=== PATIENT | female | born 1970 | race Caucasian/White ===

== ENCOUNTER → 2016-08-08 | Outpatient (CLI) | payer OTHER ==
--- NOTE | 2016-08-11 09:11 | MM ---
Reason for exam: screening (asymptomatic). Last mammogram was performed 1 year and 2 months ago. History: Family history of breast cancer in maternal grandmother. Took hormonal contraceptives for 15 years beginning at age 25. Physical Findings: A clinical breast exam by your physician is recommended on an annual basis and results should be correlated with mammographic findings. MG Screening Mammo w CAD Bilateral CC and MLO view(s) were taken. Prior study comparison: June 11, 2015, bilateral MG screening mammo w CAD. May 11, 2014, bilateral foundation screening mammo. The breast tissue is extremely dense which could obscure a lesion on mammography. Finding: There are typically benign calcifications. There is a chronic nodularity bilaterally. There is no dominant lesion. ASSESSMENT: Benign, BI-RAD 2 RECOMMENDATION: Routine screening mammogram of both breasts in 1 year.
== END | disposition home or self-care (01) ==
LOC: RADMAMWWP 13:07
PROVIDERS: ATTEND Family Medicine
DX: Z12.31 Encounter for screening mammogram for malignant neoplasm of breast (principal)

== ENCOUNTER → 2017-03-02 | Outpatient (CLI) | payer OTHER ==
--- NOTE | 2017-03-02 17:04 | XR ---
EXAMINATION TYPE: XR lumbosacral spine min 4V DATE OF EXAM: 03/02/2017 COMPARISON: NONE HISTORY: Chronic low back pain. TECHNIQUE: 4 views of the lumbar spine were obtained. FINDINGS: There is normal alignment of the lumbar vertebral bodies. There is no evidence of pars inte rarticularis defect. There is mild intervertebral disc space narrowing at L5-S1. There is no evidence of fracture or dislocation. There is a mild dextroscoliotic curvature of the thoracolumbar junction, which may be partially positional in nature. IMPRESSION: 1. No evidence of fracture or dislocation. 2. Mild degenerative disc disease at L5-S1. 3. Dextroscoliosis of the thoracolumbar junction, which may be partially positional in nature.
== END | disposition home or self-care (01) ==
LOC: RADXRYALE 16:03
PROVIDERS: ATTEND Physician Assistant Medical
DX: M51.37 Other intervertebral disc degeneration, lumbosacral region (principal); M41.85 Other forms of scoliosis, thoracolumbar region
CPT/HCPCS: 72110

== ENCOUNTER → 2018-08-12 | Outpatient (CLI) | payer OTHER ==
--- NOTE | 2018-08-15 13:15 | MM ---
Reason for exam: screening (asymptomatic). Last mammogram was performed 2 years ago. History: Family history of breast cancer in maternal grandmother. Took hormonal contraceptives for 15 years beginning at age 25. MG Screening Mammo w CAD Bilateral CC and MLO view(s) were taken. Prior study comparison: August 08, 2016, bilateral MG screening mammo w CAD. June 11, 2015, bilateral MG screening mammo w CAD. The breast tissue is extremely dense which could obscure a lesion on mammography. No suspicious abnormality. No significant changes when compared with prior studies. ASSESSMENT: Benign, BI-RAD 2 RECOMMENDATION: Routine screening mammogram of both breasts in 1 year.
== END | disposition home or self-care (01) ==
LOC: RADMAMWWP 11:42
PROVIDERS: ATTEND Family Medicine
DX: Z12.31 Encounter for screening mammogram for malignant neoplasm of breast (principal)
CPT/HCPCS: 77067

== ENCOUNTER → 2018-11-17 | Outpatient (CLI) | payer OTHER ==
[2018-11-12 14:23] VITALS: BMI 23.6
[2018-11-17 12:48] VITALS: BP 149/92; PULSE 86; RESP 16
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
== END ==
LOC: PNWHC3 12:26
PROVIDERS: ATTEND Hospitalist
DX: M47.816 Spondylosis without myelopathy or radiculopathy, lumbar region (principal); M41.86 Other forms of scoliosis, lumbar region; M46.1 Sacroiliitis, not elsewhere classified; Z87.891 Personal history of nicotine dependence; Z79.899 Other long term (current) drug therapy; Z79.1 Long term (current) use of non-steroidal anti-inflammatories (NSAID)
CPT/HCPCS: 99211

== ENCOUNTER → 2018-11-29 | Day surgery (SDC) | payer OTHER ==
[~2018-11-29] MED LIST: IV FLUID CONTINUATION 1,000 ML IV ONE; LACTATED RINGERS 1,000 ML IV ONE; LIDOCAINE 1% 20 ML VIAL (10MG/ML) FOR IV START INTRADERMA ONE
[2018-11-29 10:03] VITALS: RESP 16; TEMP 97.7
--- NOTE | 2018-11-29 10:44 | P.PCN ---
Date of Procedure: 11/29/18 Surgeon: Cammy James Pathology: none sent Condition: stable Disposition: PACU Description of Procedure: Preoperative diagnoses= sacroiliac joint dysfunction and sacroiliitis on the R ight side Postoperative diagnoses= same as preoperative diagnosis. Procedure= sacroiliac joint steroid injection under fluoroscopic guidance. Anesthesia= local anesthesia with lidocaine 1% and IV moderate conscious sedation with fentanyl and Versed Estimated blood loss=minimal. Procedure indication= the patient had a history of severe chronic low back pain, diagnosed with sacroiliitis and lumbar sacral facet arthropathy unresponsive to conservative treatment. Procedure description= the patient was seen and identified in the preoperative holding area, risks and benefits and alternative of the procedure and possible complications discussed with the patient, patient signed the consent. an IV was started, and vital signs were monitored and were stable throughout the pr ocedure, patient was placed in the prone position or table and the lumbosacral area was prepped and draped with a sterile fashion, vital signs were closely monitored during the procedure.The sacroiliac joint was identified on the AP view of fluoroscopy then the C-arm was tilted to the left oblique position to superimpose the anterior and posterior joint lines on each other and to have a unified joint line with the target point at the inferior one third of this line. I used 22-gauge 3-1/2 inch Quincke spinal needle for this procedure and after getting into the sacroiliac joint I injected 40 mg of Kenalog +2 MLS of Ropivacaine 0.5%. Patient tolerated the procedure well without any complication, The patient returned to supine position after the back was cleaned and a Band- Aid applied, the patient transported to recovery room in stable condition and he was monitored for 30 minutes before he was discharged home and then patient was reexamined before going home and patient was discharged in stable condition and patient will follow up with the pain clinic in a few weeks
[2018-11-29 11:10] VITALS: BP 122/75; PULSE 61
--- NOTE | 2018-11-29 12:11 | FL ---
EXAMINATION TYPE: FL guided pain mgmt statistic DATE OF EXAM: 11/29/2018 HISTORY: Flouroscopy time 11 seconds of fluoroscopy provided. IMPRESSION: 1. Fluoroscopy time.
== END ==
LOC: ORPAIN 09:46
PROVIDERS: ATTEND Anesthesiology
DX: M53.3 Sacrococcygeal disorders, not elsewhere classified (principal); M46.1 Sacroiliitis, not elsewhere classified; G89.29 Other chronic pain; M25.579 Pain in unspecified ankle and joints of unspecified foot; M19.90 Unspecified osteoarthritis, unspecified site; M41.9 Scoliosis, unspecified; M47.816 Spondylosis without myelopathy or radiculopathy, lumbar region; Z87.891 Personal history of nicotine dependence; Z79.899 Other long term (current) drug therapy
CPT/HCPCS: 81025; J2250; J3301; J3010; G0260; 27096

== ENCOUNTER 2018-12-13 09:46 | Day surgery (SDC) | payer OTHER ==
[2018-12-10 08:55] VITALS: BMI 24.0
[~2018-12-13 09:46] MED LIST changes: -IV FLUID CONTINUATION 1,000 ML IV ONE; -LACTATED RINGERS 1,000 ML IV ONE; +LACTATED RINGERS 1,000 ML IV SCH; -LIDOCAINE 1% 20 ML VIAL (10MG/ML) FOR IV START INTRADERMA ONE
[2018-12-13 10:16] VITALS: RESP 16; TEMP 98.3
[2018-12-13] MEDS ORDERED: LIDOCAINE 1% 20 ML VIAL (10MG/ML) FOR IV START INTRADERMA ONE (10:24)
--- NOTE | 2018-12-13 10:58 | P.PCN ---
Date of Procedure: 12/13/18 Description of Procedure: Date of Procedure: 12/13/2018 Surgeon: Fito Gordillo MD Condition: stable Disposition: PACU Description of Procedure: Preoperative diagnoses: Lumbosacral spondylosis Postoperative diagnoses= same as preoperative diagnosis. Procedure= sacroiliac joint steroid injection under fluoroscopic guidance. Anesthesia= local anesthesia with lidocaine 1% and IV moderate conscious sedation with fentanyl and Versed Estimated blood loss=minimal. Procedure indication= the patient had a history of severe chronic low back pain, diagnosed with sacroiliitis and lumbar sacral facet arthropathy unresponsive to conservative treatment. Procedure description: the patient was seen and identified in the preoperative holding area, risks and benefits and alternative of the procedure and possible complications discussed with the patient, patient signed the consent. an IV was started, and vital signs were monitored and were stable throughout the procedure, patient was placed in the prone position or table and the lumbosacral area was prepped and draped with a sterile fashion, vital signs were closely monitored during the procedure.The sacroiliac joint was identified on the AP view of fluoroscopy then the C-arm was tilted to the left oblique position to superimpose the anterior and posterior joint lines on each other and to have a unified joint line with the target point at the inferior one third of this line. I used 22-gauge 3-1/2 inch Quincke spinal needle for this procedure and after getting into the sacroiliac joint I injected 40 mg of Kenalog +2 MLS of Ropivacaine 0.5%. Patient tolerated the procedure well without any complication, The patient returned to supine position after the back was cleaned and a Band- Aid applied, the patient transported to recovery room in stable condition and he was monitored for 30 minutes before he was discharged home and then patient was reexamined before going home and patient was discharged in stable condition and patient will follow up with the pain clinic in a few weeks
--- NOTE | 2018-12-13 11:36 | FL ---
EXAMINATION TYPE: FL guided pain mgmt statistic DATE OF EXAM: 12/13/2018 HISTORY: Flouroscopy time 11 seconds of fluoroscopy provided. IMPRESSION: 1. Fluoroscopy time.
[2018-12-13 11:38] VITALS: BP 110/78; PULSE 68
[2018-12-13] MEDS ORDERED: IV FLUID CONTINUATION 1,000 ML IV ONE (11:41)
== END 2018-12-13 12:11 | disposition home or self-care (01) ==
LOC: ORPAIN 09:46
PROVIDERS: ATTEND Anesthesiology
DX: M47.817 Spondylosis without myelopathy or radiculopathy, lumbosacral region (principal); M46.1 Sacroiliitis, not elsewhere classified; G89.29 Other chronic pain
CPT/HCPCS: 81025; J3301; J3010; Q9966; G0260; 27096

== ENCOUNTER → 2019-01-10 | Outpatient (CLI) | payer OTHER ==
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
[2019-01-10 14:37] VITALS: BP 133/77; PULSE 94; RESP 16
== END | disposition home or self-care (01) ==
LOC: PNWHC3 13:59
PROVIDERS: ATTEND Anesthesiology
DX: M54.5 Low back pain (principal); Z98.890 Other specified postprocedural states; Z87.828 Personal history of other (healed) physical injury and trauma
CPT/HCPCS: 99211

== ENCOUNTER → 2019-01-20 | Outpatient (CLI) | payer OTHER ==
--- NOTE | 2019-01-21 11:04 | CT ---
EXAMINATION TYPE: CT lower extremity RT wo con DATE OF EXAM: 01/20/2019 COMPARISON: None HISTORY: Primary osteoarthritis. Right ankle. Prophecy protocol. CT DLP: 612 mGycm Automated exposure control for dose reduction was used. TECHNIQUE: Axial, coronal, sagittal and 3-D reconstruction images of the knee and ankle submitted. FINDINGS: There is a 5 mm intracortical lesion of the distal diaphysis of the femur posteriorly. There is surro unding sclerosis involving the distal diaphysis of the femur. Arthropathy of the knee joint and patellofemoral joint seen. Diffuse osteopenia but no evidence of er osive change. No acute fracture. Assessment of the ankle demonstrates narrowing of the ankle mortise. Hypertrophic changes are seen an d there is diffuse osteopenia. Chronic appearing deformity of the distal margin lateral malleolus not ed. Cystic change involving the dome of the talus. IMPRESSION: 1. Arthropathy of the ankle joint and knee joints. There is a cystic change and sclerosis involving t he talar domes occasionally be seen with osteochondritis. Correlate with MRI as clinically warranted. 2. There is an intraosseous lesion of the posterior cortex distal diaphysis of the femur measuring ap proximately 5 mm. Osteoid osteoma, intracortical fibrous dysplasia, infection, nonossifying fibroma o r bone cyst in the differential diagnosis.
== END | disposition home or self-care (01) ==
LOC: RADCTMAIN 15:24
PROVIDERS: ATTEND Orthopaedic Surgery
DX: D16.21 Benign neoplasm of long bones of right lower limb (principal); M19.071 Primary osteoarthritis, right ankle and foot; M25.861 Other specified joint disorders, right knee; M85.061 Fibrous dysplasia (monostotic), right lower leg

== ENCOUNTER → 2019-06-07 | Outpatient (CLI) | payer OTHER ==
[2019-06-07 13:09] VITALS: BP 136/77; PULSE 80; RESP 18
--- NOTE | 2019-06-07 13:25 | P.PAINPG ---
Subjective Progress Note Date: 06/07/19 This is a follow-up visit for this 48 years old female, with a chronic history of severe low back pain patient diagnosed with right sacroiliitis, lumbar spondylosis with lumbar facet arthropathy, November and December 2018 and we have done right side sacroiliac joint steroid injections 2, patient gets excellent pain relief after each injection, the pain was 8/10 dropped to 0-1/10 after the injection, recently she started having similar pain like before, and the pain mostly in the low back area with radiation to the right buttock, she denies any motor or sensory deficit she denies any fever or night sweats under is no change in the bowel movement or urination Objective - Vital Signs Vital signs: Vital Signs Temp Pulse 80 06/07/19 13:05 Resp 18 06/07/19 13:05 BP 136/77 06/07/19 13:05 Pulse Ox 100 06/07/19 13:05 - Exam Physical Examinations : -Constitutiona : Cooperative , not in acute distress . -HEENT : nech : supple , no Lymphadenopathy , normal thyroid size . : eyes : no ptosis , no icterus, no photophobia . - neurologic : Cranial nerve II to XII intact , no focal neurological deffecit . -psychatric : alert , oriented X 3 , appropriate affect , intact judgment and insight . -Lymphatic : no Lymphadenopathy . - musculoskeltal : Lumber spine moter stegnth lower extremities ,thigh and legs 5/5 Right side , 5/5 Left side deep tendon reflexes : normal Knee Jerk , normal ankle Jerk lumber facet Loading Test =positive Right , negative Left Range of motion of the lumbar spine Flexion 30 degrees, extension 10 degrees strait leg raising test = negative bilaterally Fabere test= negative bilaterally Sever tenderness over the Sacroiliac joint on the Right side only. Gaenslen test= positive right ,and negative left . Seated flexion test= positive right ,and negative Left . Assessment and Plan Plan: Assessment and plan= right sacroiliitis, lumbar spondylosis with lumbar facet arthropathy. Patient had excellent pain relief after right sacroiliac joint steroid injections 2 She will be good candidate for RFA of the right sacroiliac joint (RFA L5-S1 dorsal ramus, RFA lateral branchesS1, S2 ,S3 ) Procedure risk and benefits and alternatives discussed with the patient she agreed with the preceding Time with Patient: Less than 30 PQRS Measure Charge Sheet Measure #130: Documentation of Current Meds in Medical Chart: Patient's medications documented in chart Measure #226: Tobacco Use: Screen & Cessation Intervention: Pt not a tobacco user Measure #111: Pneumonia Vaccination: Pneumococcal vaccine NOT administered or previously given Measure #47: Advance Care Plan: Advance care planning discussed & documented, pt chose/unable to give Measure #412: Opioid Treatment Agreement: No documentation of signed opioid treatment agreement Measure #408: Opioid Therapy Follow-up Evaluation: Patient had NO f/u eval minimum every 3 months during opioid therapy Measure #317: Preventitive Care & Scrn High Bld Press & F/U: Normal blood pressure, f/u not required Measure #128: Body Mass Index (BMI) Screening & Follow-up: BMI documented within normal parameters Measure #131: Pain Assessment & Follow-up: Pain positive & plan documented, Follow-up scheduled Measure #431: Unhealthy Alcohol Use Preventative Care & Scrn: Patient not identified as an unhealthy alcohol user PQRS Narrative: Smoking Status Former smoker Blood Pressure 136/77 Pain Intensity [Lower Back] 5 Scale Used Numeric (1 - 10) Hx Alcohol Use (MH) Yes: social Home Medications: Ambulatory Orders Celecoxib [CeleBREX] 200 mg PO DAILY 01/10/19 Pregabalin [Lyrica] 75 mg PO BID 01/10/19 Controlled Substance Measures - Controlled Substance Measures Is patient prescribed a controlled substance at discharge?: No
== END | disposition home or self-care (01) ==
LOC: PNWHC3 12:57
PROVIDERS: ATTEND Specialist
DX: G89.29 Other chronic pain (principal); M46.1 Sacroiliitis, not elsewhere classified; M47.816 Spondylosis without myelopathy or radiculopathy, lumbar region; M46.96 Unspecified inflammatory spondylopathy, lumbar region; Z87.891 Personal history of nicotine dependence; Z79.1 Long term (current) use of non-steroidal anti-inflammatories (NSAID); Z79.899 Other long term (current) drug therapy
CPT/HCPCS: 99211

== ENCOUNTER 2019-06-20 09:27 | Day surgery (SDC) | payer OTHER ==
[2019-06-17 12:29] VITALS: BMI 24.0
[2019-06-20] MEDS ORDERED: LIDOCAINE 1% 20 ML VIAL (10MG/ML) FOR IV START INTRADERMA ONE (10:15)
[2019-06-20 10:33] VITALS: RESP 18; TEMP 98
[2019-06-20 10:40] LABS: Glucose,Whole Blood 82 mg/dL (75-99)
--- NOTE | 2019-06-20 11:03 | P.PCN ---
Date of Procedure: 06/20/19 Procedure(s) Performed: RF of the Lateral Branch of S1, S2, and S3, and RFA of L5 dorsal rami Date of the procedure: 06/20/19 PREOPERATIVE DIAGNOSIS: 1. Lumbosacral Spondylosis. 2. Bilateral sacroiliitis. POSTOPERATIVE DIAGNOSIS: 1-Lumbosacral arthropathy. 2-right sacroiliitis. PROCEDURES: 1. Right multi-site radiofrequency thermocoagulation/ablation of the S1, S2, and S3 lateral branches, and L5 dorsal rami. The procedure was performed using fluoroscopic guidance during needle placement to assure proper position and maximize safety. Images were saved to radiology PROVIDER: Sendy Barth M.D. ANESTHESIA: Local Anesthesia, moderate sedation with versed and fentanyl EBL: Minimal INDICATION/MEDICAL NECESSITY: History of low back unresponsive to more conservative treatments. The patient reported more than 50% relief of pain symptoms following 2 previous diagnostic blocks. PROCEDURE DESCRIPTION: The patient was seen and identified in the preoperative area. Risks, benefits, complications, and alternatives were discussed with the patient. The patient agreed to proceed with the procedure and signed the consent. Vital signs were checked before and after the procedure and they remained stable. Patient was brought to the procedure room and time out was completed. The patient was placed in the prone position on the procedure table and a pillow was placed under the abdomen to reduce lumbar lordosis. The lumbosacral area was prepped and draped in the usual sterile fashion. Critical pause was taken. The lateral margins of the right S1, S2, and S3 foramina were identified using AP fluoroscopy. Under fluoroscopic guidance, millimeter 18-gauge needles were places lateral to the S1, S2, and S3 sacral foramen with 1 cm apart.. Motor stimulation was done at 2 Hz. No radicular symptoms or paresthesias were produced during the testing. Then multiple bipolar lesions were performed at 150 seconds at 80 degrees. The needles were leapfrogged to continue the strip lesion. Next attention was given to the right L5 dorsal rami, after verifying correct positioning this to his lesion. The needle were subsequently withdrawn. COMPLICATIONS: The patient tolerated the procedure well without any acute complications. DISPOSTION/PLAN: The patient was returned to the recovery area after the procedure in a stable condition for observation. Patient was reexamined prior to discharge. Patient was then discharged home, accompanied by an adult, after meeting discharged criteria. Discharge instructions were give to the patient by the staff. Patient was specifically instructed not to drive today and to rest for the rest of the day. The patient will schedule a follow up visit in the clinic within the next four weeks.
[2019-06-20] MEDS ORDERED: IV FLUID CONTINUATION 1,000 ML IV ONE (11:05)
[2019-06-20 11:26] VITALS: BP 122/64; PULSE 83
--- NOTE | 2019-06-20 12:16 | FL ---
Fluoroscopy HISTORY: Pain 24 seconds fluoroscopy time supplied to the referring clinician. 7 intraoperative C-arm images docum ent the procedure. See dictated report from anesthesia.
== END 2019-06-20 11:37 | disposition home or self-care (01) ==
LOC: ORPAIN 09:27
PROVIDERS: ATTEND Student in an Organized Health Care Education/Training Program
DX: G89.29 Other chronic pain (principal); M47.26 Other spondylosis with radiculopathy, lumbar region; M46.1 Sacroiliitis, not elsewhere classified; E11.9 Type 2 diabetes mellitus without complications; Z87.891 Personal history of nicotine dependence; Z79.899 Other long term (current) drug therapy
CPT/HCPCS: 81025; 64640 ×3; 64635; J2250; J3010; 99152; 99153

== ENCOUNTER → 2019-07-19 | Outpatient (CLI) | payer OTHER ==
[2019-07-19 14:55] VITALS: BP 152/92; PULSE 68; RESP 16
--- NOTE | 2019-07-20 08:38 | P.PAINPG ---
Subjective Progress Note Date: 07/19/19 this is a follow-up visit for this 48 years old female with a chronic history of severe low back pain, he is diagnosed with sacroiliitis, and lumbar spondylosis with lumbar facet arthropathy, status post RFA of the right sacroiliac joint, patient currently complaining of severe localized pain in the right side low back area, and also in the right side sacral and buttock area, she denies any motor or sensory deficit she denies any fever or night sweats and there is no change in the bowel movement or urination, continue to use Lyrica 75 mg 2 times a day and Celebrex 200 mg daily Objective - Vital Signs Vital signs: Vital Signs Temp Pulse 68 07/19/19 14:21 Resp 16 07/19/19 14:21 BP 152/92 07/19/19 14:21 Pulse Ox 99 07/19/19 14:21 - Exam Physical Examinations : -Constitutiona : Cooperative , not in acute distress . -HEENT : nech : supple , no Lymphadenopathy , normal thyroid size . : eyes : no ptosis , no icterus, no photophobia . - neurologic : Cranial nerve II to XII intact , no focal neurological deffecit . -psychatric : alert , oriented X 3 , appropriate affect , intact judgment and insight . -Lymphatic : no Lymphadenopathy . - musculoskeltal : Lumber spine moter stegnth lower extremities ,thigh and legs 5/5 Right side , 5/5 Left side deep tendon reflexes : normal Knee Jerk , normal ankle Jerk lumber facet Loading Test =positive Right , positive Left Range of motion of the lumbar spine Flexion 60 degrees, extension 30 degrees strait leg raising test = negative bilaterally Fabere test= negative bilaterally tenderness over the Sacroiliac joint on the Right side total trigger point identified in the right side lumbar paravertebral muscles right sacral and right buttock area . Assessment and Plan Plan: assessment and plan=1- lumbar spondylosis with lumbar facet arthropathy. 2- sacroiliitis. 3-myofascial pain syndrome right-sided lumbar paravertebral on the right side lumbar sacral area, right buttock area. patient will be good candidate to have trigger point injections in the right side lumbar paravertebral muscles of the right side sacral area. Time with Patient: Less than 30 PQRS Measure Charge Sheet Measure #130: Documentation of Current Meds in Medical Chart: Patient's medications documented in chart Measure #226: Tobacco Use: Screen & Cessation Intervention: Pt not a tobacco user Measure #111: Pneumonia Vaccination: Pneumococcal vaccine NOT administered or previously given Measure #47: Advance Care Plan: Advance care planning discussed & documented, pt chose/unable to give Measure #412: Opioid Treatment Agreement: No documentation of signed opioid treatment agreement Measure #408: Opioid Therapy Follow-up Evaluation: Patient had NO f/u eval minimum every 3 months during opioid therapy Measure #317: Preventitive Care & Scrn High Bld Press & F/U: Pre-hypertensive or hypertensive BP documented, pt will f/u with PCP Measure #128: Body Mass Index (BMI) Screening & Follow-up: BMI documented within normal parameters Measure #131: Pain Assessment & Follow-up: Pain positive & plan documented, Follow-up scheduled Measure #431: Unhealthy Alcohol Use Preventative Care & Scrn: Patient not identified as an unhealthy alcohol user PQRS Narrative: Smoking Status Former smoker Blood Pressure 152/92 Pain Intensity [Right Lower 9 Back] Scale Used Numeric (1 - 10) Hx Alcohol Use (MH) Yes: Social Home Medications: Ambulatory Orders Celecoxib [CeleBREX] 200 mg PO DAILY 01/10/19 Pregabalin [Lyrica] 75 mg PO BID 01/10/19 Controlled Substance Measures - Controlled Substance Measures Is patient prescribed a controlled substance at discharge?: No
== END | disposition home or self-care (01) ==
LOC: PNWHC3 13:07
PROVIDERS: ATTEND Specialist
DX: M47.816 Spondylosis without myelopathy or radiculopathy, lumbar region (principal); M46.96 Unspecified inflammatory spondylopathy, lumbar region; M46.1 Sacroiliitis, not elsewhere classified; M79.18 Myalgia, other site; Z87.891 Personal history of nicotine dependence; Z79.899 Other long term (current) drug therapy
CPT/HCPCS: 99211

== ENCOUNTER 2019-08-17 08:48 | Day surgery (SDC) | payer OTHER ==
[2019-08-16 11:10] VITALS: BMI 24.3
[~2019-08-17 08:48] MED LIST changes: +BUPIVACAINE (PF) 0.5% 30 ML VIAL ONE; +LIDOCAINE 1% INJ 10MG/ML (20 ML MDV) ONE; +TRIAMCINOLONE ACETONIDE 40 MG/ML 1 ML VIAL ONE
[2019-08-17 09:27] VITALS: TEMP 97.5
[2019-08-17 10:59] VITALS: RESP 16
[2019-08-17 11:18] VITALS: BP 150/68; PULSE 82
--- NOTE | 2019-09-01 06:44 | P.PCN ---
Date of Procedure: 08/17/19 Description of Procedure: Date of Procedure: 12/13/2018 Surgeon: Fito Gordillo MD Condition: stable Disposition: PACU Description of Procedure: Preoperative diagnoses: Lumbosacral spondylosis, myofascial pain, myalgia Postoperative diagnoses= same as preoperative diagnosis. Procedure= Trigger Point Injections of right lumbar paraspinal muscles, right gluteus muscle with ultrasound guidance Anesthesia= local anesthesia Estimated blood loss=minimal. Procedure indication= the patient had a history of severe chronic low back pain, diagnosed with sacroiliitis and lumbar sacral facet arthropathy unresponsive to conservative treatment. Unresponsive to conservative therapy for myofascial/myalgia pain Procedure description: the patient was seen and identified in the preoperative holding area, risks and benefits and alternative of the procedure and possible complications discussed with the patient, patient signed the consent. an IV was started, and vital signs were monitored and were stable throughout the procedure, patient was placed in the sitting position lumbosacral area was prepped and draped with a sterile fashion, vital signs were closely monitored during the procedure.The Trigger points were identified with palpation. Ultrasound guidance was used to identify muscle, visualize needle, and visualize medication spread. I used 25-gauge 1- 1/2 inch spinal needle for this procedure. A solution of 6ml 0.5% ropivacaine and 40mg kenalog 1ml was used. 1-2 ml injected into each trigger point. A total of 4 injections into 3 muscles occured. Patient tolerated the procedure well without any complication, The patient returned to supine position after the back was cleaned and a Band- Aid applied, the patient transported to recovery room in stable condition and he was monitored for 30 minutes before he was discharged home and then patient was reexamined before going home and patient was discharged in stable condition and patient will follow up with the pain clinic in a few weeks`
== END 2019-08-17 11:08 | disposition home or self-care (01) ==
LOC: ORPAIN 08:48
PROVIDERS: ATTEND Anesthesiology
DX: G89.29 Other chronic pain (principal); M47.817 Spondylosis without myelopathy or radiculopathy, lumbosacral region; M79.18 Myalgia, other site; M46.1 Sacroiliitis, not elsewhere classified; M47.816 Spondylosis without myelopathy or radiculopathy, lumbar region; Z87.891 Personal history of nicotine dependence; Z79.899 Other long term (current) drug therapy; Z79.1 Long term (current) use of non-steroidal anti-inflammatories (NSAID)
CPT/HCPCS: 81025; 20553; 76942; J3301; J2001

== ENCOUNTER 2019-09-22 09:08 | Day surgery (SDC) | payer OTHER ==
[2019-09-20 10:18] VITALS: BMI 24.3
[~2019-09-22 09:08] MED LIST changes: -BUPIVACAINE (PF) 0.5% 30 ML VIAL ONE; -LIDOCAINE 1% INJ 10MG/ML (20 ML MDV) ONE; -TRIAMCINOLONE ACETONIDE 40 MG/ML 1 ML VIAL ONE
[2019-09-22 09:28] VITALS: TEMP 97.6
[2019-09-22] MEDS ORDERED: LIDOCAINE 1% 20 ML VIAL (10MG/ML) FOR IV START INTRADERMA ONE (09:40)
[2019-09-22 09:47] LABS: Glucose,Whole Blood 80 mg/dL (75-99)
[2019-09-22] MEDS ORDERED: LIDOCAINE 4% (PF) 5 ML AMP ONE (10:27)
[2019-09-22] MEDS ORDERED: IOPAMIDOL M200 10 ML VIAL ONE (10:27)
[2019-09-22] MEDS ORDERED: MIDAZOLAM 2 MG/2 ML VIAL ONE (10:27)
[2019-09-22] MEDS ORDERED: IV FLUID CONTINUATION 1,000 ML IV ONE (10:47)
[2019-09-22 11:20] VITALS: BP 128/56; PULSE 67; RESP 18
--- NOTE | 2019-09-22 12:37 | P.PCN ---
Date of Procedure: 09/22/19 Procedure(s) Performed: PREOPERATIVE DIAGNOSIS : Lumbar spondylosis with Facet Arthropathy without myelopathy POSTOPERATIVE DIAGNOSIS: same PROCEDURE: First Diagnostic lumbar medial branch block with fluoroscopy at L3, L4, L5 right side which covers facets L4-5 and L5-S1 ANESTHESIA: Local anesthetic; moderate IV sedation with Versed 1 mg, sedation time 10 minutes Fluoroscopy was used for the procedure and images were saved in the radiology portion of the chart. Surgeon: Katherine Pereira MD PROCEDURE INDICATION: Lumbar back pain without radiculopathy, not responsive to conservative management. PROCEDURE DESCRIPTION: the patient was seen and identified in the preop holding area , risks and benefits and possible complications of the procedure and alternatives were discussed with the patient, and the patient agreed to proceed with the procedure and signed the consent . IV was started , vital signs were monitored during the procedure and fluoroscopy was used to maximize the benefit and accuracy of the needle placement, and sedation was given to decrease patient anxiety. Patient was taken to the procedure room and placed in prone position. The lumbar region was prepped using chlorhexidineX-2. Under strict sterile technique using AP fluoroscopy the right sacral ala was identified and using ipsilateral oblique fluoroscopy ,the junction of the transverse process and the superior articulating process of the L4, L5 vertebra which corresponds to the fluoroscopy image of the eye of the Edwin dog for the medial branches were identified. Subsequently, after local infiltration of skin with lidocaine 1% 0.2 mL at each level , a 25-gauge 3.5" Quincke-type needle was placed at the junction of the base of the transverse process and the superior articular process at the appropriate level as well as the sacral ala, and the needle was advanced until the periosteum contacted, needle placement confirmed with AP and oblique fluoroscopy, 0.2 mL of Isovue 200 per level was injected which revealed no vascular uptake and after negative aspiration, 0.5 mL of [lidocaine 4%] was i njected at each level and the needle subsequently removed . At the end of the procedure and the needles were removed and a bandage applied after the skin was cleaned. The patient was taken to recovery room in stable condition and monitors in the recovery room for 20-30 minutes and discharged home in stable condition after discharge criteria met and patient will follow up in clinic in 2 weeks EBL: Minimal COMPLICATION: None.
--- NOTE | 2019-09-22 12:55 | FL ---
Fluoroscopy HISTORY: Pain 3 seconds fluoroscopy time supplied to the referring clinician. 2 intraoperative C-arm images docume nt the procedure. See dictated report from anesthesia.
== END 2019-09-22 11:20 | disposition home or self-care (01) ==
LOC: ORPAIN 09:08
PROVIDERS: ATTEND Anesthesiology
DX: M47.816 Spondylosis without myelopathy or radiculopathy, lumbar region (principal)
CPT/HCPCS: 81025; 64493; 64494; J2001; J2250; Q9966; 99152

== ENCOUNTER 2019-10-06 09:45 | Day surgery (SDC) | payer OTHER ==
[2019-10-05 08:47] VITALS: BMI 24.3
[2019-10-06 10:16] LABS: Glucose,Whole Blood 78 mg/dL (75-99)
[2019-10-06] MEDS ORDERED: LIDOCAINE 1% (10MG/ML) FOR IV START INTRADERMA ONE (10:20)
[2019-10-06 10:22] VITALS: TEMP 98.9
[2019-10-06] MEDS ORDERED: ROPIVACAINE 5MG/ML 20ML VIAL ONE (10:31)
[2019-10-06] MEDS ORDERED: methylPREDNISolone ACETATE 40 MG/ML 1 ML VIAL ONE (10:31)
[2019-10-06] MEDS ORDERED: fentaNYL (PF) 50 MCG/ML 2 ML AMP ONE (10:31)
[2019-10-06] MEDS ORDERED: MIDAZOLAM 2 MG/2 ML VIAL ONE (10:31)
--- NOTE | 2019-10-06 10:46 | P.PCN ---
Date of Procedure: 10/06/19 Procedure(s) Performed: PREOPERATIVE DIAGNOSIS : 1- Lumbar spondylosis with Facet Arthropathy without myelopathy . POSTOPERATIVE DIAGNOSIS: 1- Lumbar spondylosis with Facet Arthropathy without myelopathy . PROCEDURE: Second Diagnostic Right L3 , L4 , and L5 medial branch block under fluoroscopy guidance(fluoroscopy images available in the radiology Department ) ( To target the facet joint between Right L4-5 , and L5-S1 ) ANESTHESIA:, moderate sedation with intravenous Versed 2 mg and Fentanyl 50 mcg. EBL: Minimal COMPLICATION: None. IV FLUIDS: 100 mL of normal saline. PROCEDURE INDICATION: Chronic low back pain secondary to Facet arthropathy unresponsive to conservative treatment. PROCEDURE DESCRIPTION: the patient was seen and identified in the preop holding area , risks and benefits and possible complications of the procedure and alternative were discussed with the patient, and the patient agreed to proceed with the procedure and signed the consent IV was started and vital signs monitored during the procedure and fluoroscopy was used to maximize the benefit and accuracy of the needle placement, and sedation was given to decrease patient anxiety, patient was taken to the procedure room and placed in prone position vital signs monitored in the back prepped with chlorhexidine X3 then under strict sterile technique using a right oblique fluoroscopy ,the junction of the transverse process and the superior articulating process of the right L3 , L4 , and L5 vertebra which corresponding to the fluoroscopy image of the eye of the Edwin dog on the block side for the medial branches and subsequently , after local infiltration of skin and subcu tissuies with Ropivacaine 0.5 % , one mL at each level ,then 22-gauge Quincke-type needles , 3 needle was used , each one of them placed at the junction of the base of the transverse process and the superior articular process at the appropriate level, and the needle was advanced until the periosteum contacted, needle placement confirmed with AP oblique and lateral view and after appropriate needle placement confirmed, and after negative aspiration for heme and CSF and there was no paresthesia 1-1/2 mL of Ropivacaine 0.5% mixed with 40 mg Depo-Medrol , then half mL injected at each level after negative aspiration the needle subsequently removed intact . At the end of the procedure and the needles removed and a bandage applied after the skin was cleaned the cleaning solution patient taken to recovery room in stable condition and monitors in the recovery room for 20-30 minutes and discharged home in stable condition after discharge criteria met and patient will follow up with the pain clinic in 2-4 weeks
[2019-10-06] MEDS ORDERED: IV FLUID CONTINUATION 1,000 ML IV ONE (10:51)
--- NOTE | 2019-10-06 10:58 | FL ---
EXAMINATION TYPE: FL guided pain mgmt statistic DATE OF EXAM: 10/06/2019 HISTORY: Fluoroscopy time 4 seconds of fluoroscopy provided. IMPRESSION: 1. Fluoroscopy time.
[2019-10-06 11:00] VITALS: RESP 16
[2019-10-06 11:07] VITALS: BP 122/82; PULSE 73
== END 2019-10-06 11:23 | disposition home or self-care (01) ==
LOC: ORPAIN 09:45
PROVIDERS: ATTEND Specialist
DX: G89.29 Other chronic pain (principal); M47.816 Spondylosis without myelopathy or radiculopathy, lumbar region; M46.1 Sacroiliitis, not elsewhere classified
CPT/HCPCS: 81025; 64493; 64494; J2250; J1030; J3010; J2795

== ENCOUNTER → 2020-04-03 | Outpatient (CLI) | payer OTHER ==
--- NOTE | 2020-04-03 17:07 | XR ---
EXAMINATION TYPE: XR thoracic spine complete DATE OF EXAM: 04/03/2020 CLINICAL HISTORY: Thoracic pain, scoliosis TECHNIQUE: Frontal, lateral, and swimmer's view of thoracic spine are obtained. COMPARISON: None. FINDINGS: The thoracic spine shows levoscoliosis of the thoracic spine of 25 degrees, and incompletel y visualized lumbar dextroscoliosis. No evidence of acute fracture or dislocation. There is an increa sed thoracic kyphosis. Vertebral body height are within normal limits. Multilevel degenerative endpla te spurring. Visualized ribs are missing no evidence of displaced fracture. IMPRESSION: 1. Thoracic spine levoscoliosis of 25 degrees. 2. Degenerative spurring of the thoracic spine. 3. Incompletely visualized dextroscoliosis of the lumbar spine.
== END | disposition home or self-care (01) ==
LOC: RADXRYALE 14:40
PROVIDERS: ATTEND Physician Assistant Medical
DX: M41.84 Other forms of scoliosis, thoracic region (principal)
CPT/HCPCS: 72072

== ENCOUNTER → 2020-04-25 | Outpatient (CLI) | payer OTHER ==
[2020-04-25 12:36] VITALS: RESP 18
[2020-04-25 12:42] VITALS: BP 111/78; PULSE 77; TEMP 98.4
--- NOTE | 2020-04-25 12:57 | P.PAINPG ---
Subjective Progress Note Date: 04/25/20 this is a follow-up visit for this 48 years old female with a chronic history of severe low back pain, he is diagnosed with sacroiliitis, and lumbar spondylosis with lumbar facet arthropathy, previously we have done the RFA of the right sacroiliac joint,in our last visit patient's pain was more low back, now s/p bilateral LMBB of L3-L5. Here for follow up today. She had medial branch blocks in September and October of this year, was scheduled to have RFA but the virus. She is now back. Her pain she says is worse than it was before located in the right low back with radiation to the lower thoracic area as well as right buttock. She has had ablation of the SI joint on the right side in the past which she said worked very well. Medial branch blocks that she had earlier this year also worked very well, giving her several hours of relief newly 100%. She is receiving [place] 5 mg when necessary from her PCP due to recent back strain as well as Celebrex 200 twice a day for ankle pain. she denies any motor or sensory deficit she denies any fever or night sweats and there is no change in the bowel movement or urination, Objective - Exam -Constitutiona : Cooperative , not in acute distress . -HEENT : nech : supple , no Lymphadenopathy , normal thyroid size . : eyes : no ptosis , no icterus, no photophobia . - neurologic : Cranial nerve II to XII intact , no focal neurological deffecit . -psychatric : alert , oriented X 3 , appropriate affect , intact judgment and insight . -Lymphatic : no Lymphadenopathy . - musculoskeltal : Lumber spine moter stegnth lower extremities ,thigh and legs 5/5 Right side , 5/5 Left side deep tendon reflexes : normal Knee Jerk , normal ankle Jerk lumber facet Loading Test =positive Right , positive Left Range of motion of the lumbar spine Flexion 60 degrees, extension 30 degrees strait leg raising test = negative bilaterally Fabere test= negative bilaterally tenderness over the Sacroiliac joint on the Right side Assessment and Plan Plan: assessment and plan=1- lumbar spondylosis with lumbar facet arthropathy. 2- sacroiliitis. Schedule her for right L4-L5 and L5-S1 RFA. Time with Patient: Less than 30 PQRS Measure Charge Sheet Measure #130: Documentation of Current Meds in Medical Chart: Patient's medications documented in chart Measure #226: Tobacco Use: Screen & Cessation Intervention: Pt not a tobacco user Measure #111: Pneumonia Vaccination: Pneumococcal vaccine NOT administered or previously given Measure #47: Advance Care Plan: Advance care planning discussed & documented, pt chose/unable to give Measure #412: Opioid Treatment Agreement: No documentation of signed opioid treatment agreement Measure #408: Opioid Therapy Follow-up Evaluation: Patient had NO f/u eval minimum every 3 months during opioid therapy Measure #317: Preventitive Care & Scrn High Bld Press & F/U: Pre-hypertensive or hypertensive BP documented, pt will f/u with PCP Measure #128: Body Mass Index (BMI) Screening & Follow-up: BMI documented within normal parameters Measure #131: Pain Assessment & Follow-up: Pain positive & plan documented, Follow-up scheduled Measure #431: Unhealthy Alcohol Use Preventative Care & Scrn: Patient not identified as an unhealthy alcohol user PQRS Narrative: Smoking Status Former smoker Blood Pressure 144/84 Pain Intensity [Right Lower 4 Back] Scale Used Numeric (1 - 10) Hx Alcohol Use (MH) Yes: Social PQRS Measure Charge Sheet PQRS Narrative: Smoking Status Former smoker Pain Intensity [Lower Back] 9 Scale Used Numeric (1 - 10) Hx Alcohol Use (MH) Yes: Social Home Medications: Ambulatory Orders Celecoxib [CeleBREX] 200 mg PO BID 01/10/19 HYDROcodone/APAP 5-325MG [[place] 5-325] 1 tab PO Q6HR PRN 04/25/20 Controlled Substance Measures - Controlled Substance Measures Is patient prescribed a controlled substance at discharge?: No
== END | disposition home or self-care (01) ==
LOC: PNWHC3 12:20
PROVIDERS: ATTEND Anesthesiology
DX: M47.816 Spondylosis without myelopathy or radiculopathy, lumbar region (principal); M46.96 Unspecified inflammatory spondylopathy, lumbar region; M46.1 Sacroiliitis, not elsewhere classified; Z87.891 Personal history of nicotine dependence; Z79.891 Long term (current) use of opiate analgesic; Z79.899 Other long term (current) drug therapy
CPT/HCPCS: 99211

== ENCOUNTER 2020-05-17 10:34 | Day surgery (SDC) | payer OTHER ==
[2020-05-15 13:06] VITALS: BMI 25.1
[2020-05-17 10:51] VITALS: TEMP 98.5
[2020-05-17] MEDS ORDERED: ROPIVACAINE 5MG/ML 20ML VIAL ONE (11:04)
[2020-05-17] MEDS ORDERED: TRIAMCINOLONE ACETONIDE 40 MG/ML 1 ML VIAL ONE (11:04)
[2020-05-17] MEDS ORDERED: MIDAZOLAM 2 MG/2 ML VIAL ONE (11:04)
[2020-05-17] MEDS ORDERED: fentaNYL (PF) 50 MCG/ML 2 ML AMP ONE (11:04)
--- NOTE | 2020-05-17 11:31 | P.PCN ---
Date of Procedure: 05/17/20 Surgeon: Cammy James Pathology: none sent Condition: stable Disposition: PACU Description of Procedure: PREOPERATIVE DIAGNOSIS: Lumbar spondylosis without myelopathy POSTOPERATIVE DIAGNOSIS: Lumbar spondylosis without myelopathy PROCEDURES : Radiofrequency thermocoagulation L4-L5, and L5-S1 medial branch, with fluoroscopic guidance on the right side ANESTHESIA: IV moderate conscious sedation with versed and fentanyl and local infiltration with lidocaine 1% 5 ml Physician:Cammy James MD EBL: Minimal PROCEDURE INDICATION: The patient with low back pain secondary to lumbar facet arthropathy who had more than 50% relief of her pain with previous diagnostic lumbar medial branch block with bupivacaine. PROCEDURE DESCRIPTION / TECHNIQUE: The patient was seen and identified in the preoperative area. Risks, benefits, complications, including but not limited to risk of infection ,bleeding , allergic reactions to the medications and no complete pain relief , and alternatives were discussed with the patient, the patient agreed to proceed with the procedure and signed the consent. IV was started. Vital signs remained stable throughout the procedure. Patient was taken to the OR and time out was completed. The patient was placed in the prone position on the procedure table. The lumber area was prepped and draped in the usual sterile fashion. . Vital signs were closely monitored during the procedure .IV sedation was used during the procedure to decrease patients anxiety. The target points were identified as follows: For the L5-S1 level which corresponds to the dorsal ramus of L5 the target point was at the superior medial aspect of the sacral ala on the Rt side of the spine on the AP view of fluoroscopy and for the L3, and L4 medial branches the target points were at the connection between the transverse process and the superior articular process of L4, and L5 vertebra respectively on the Rt oblique view of fluoroscopy. skin was marked, and localized with 1% lidocaineat these points. Subsequently, an 18 [id number] radiofrequency needles with a 10-mm curved active tips were advanced guided by fluoroscopy to each of the target points mentioned above in a superior medial direction to get the active tips as parallel as possible to the medial branches tracks. AP, oblique, and lateral views of fluoroscopy were used to verify needle tips position. Each level then underwent motor testing at 2.5 Hz and 0 to 3 volt with local stimulation, but no radicular symptoms down the legs. Thereafter radiofrequency thermocoagulation at 80 degrees celsius for 90 seconds after injecting 1 ml of PF Marcaine 0.5%(3 mls) with 40 mg of Kenalog. At the end of the procedure, the skin was cleansed and bandages were applied. A copy of needle placement fluoroscopy was saved on the C-arm machine. COMPLICATIONS: No acute complications. DISPOSITION / PLANS: The patient was placed in a supine position and transferred to the recovery area in a stable condition for observation and was discharged from the recovery room after meeting discharge criteria. Home discharge instructions given to the patient by the staff. The patient was reexamined prior to discharge. The patient will schedule a follow up in the [facility] in 2-4 weeks.
[2020-05-17] MEDS ORDERED: IV FLUID CONTINUATION 1,000 ML IV ONE (11:36)
[2020-05-17 11:51] VITALS: BP 130/85; PULSE 71; RESP 16
--- NOTE | 2020-05-17 16:30 | FL ---
EXAMINATION TYPE: FL guided pain mgmt statistic DATE OF EXAM: 05/17/2020 COMPARISON: None HISTORY: Right lumbar radiofrequency TECHNIQUE: Fluoroscopy. FINDINGS: Fluoroscopic guidance was provided during procedure performed by Dr. James. A total of 17 seconds of fluoroscopic time was utilized during the procedure and 2 spot images was acquired. IMPRESSION: As Above.
== END 2020-05-17 12:12 | disposition home or self-care (01) ==
LOC: ORPAIN 10:34
PROVIDERS: ATTEND Anesthesiology
DX: M47.816 Spondylosis without myelopathy or radiculopathy, lumbar region (principal)
CPT/HCPCS: 81025; 64635; 64636; J2250; J3301; J3010; J2795; 99152

== ENCOUNTER → 2020-06-11 | Outpatient (CLI) | payer OTHER ==
[2020-06-11 12:35] VITALS: BP 142/82; PULSE 71; RESP 16; TEMP 98.1
--- NOTE | 2020-06-12 11:33 | P.PN ---
Subjective Progress Note Date: 06/11/20 this is a follow-up visit for this 49 years old female with a chronic history of severe low back pain, she is diagnosed with sacroiliitis, and lumbar spondylosis with lumbar facet arthropathy, recently we did RFA of the right-sided medial branch lumbar area , last year we have done the RFA of the right sacroiliac joint, patient currently complaining of severe localized pain in the right side buttock, and also in the right side sacral and buttock area, she denies any motor or sensory deficit she denies any fever or night sweats and there is no change in the bowel movement or urination, continue to use Lyrica 75 mg 2 times a day and Celebrex 200 mg daily Objective - Vital Signs Vital signs: Vital Signs Temp 98.1 F 06/11/20 12:31 Pulse 71 06/11/20 12:31 Resp 16 06/11/20 12:31 BP 142/82 06/11/20 12:31 Pulse Ox 98 06/11/20 12:31 - Exam -Constitutiona : Cooperative , not in acute distress . -HEENT : nech : supple , no Lymphadenopathy , normal thyroid size . : eyes : no ptosis , no icterus, no photophobia . - neurologic : Cranial nerve II to XII intact , no focal neurological deffecit . -psychatric : alert , oriented X 3 , appropriate affect , intact judgment and insight . -Lymphatic : no Lymphadenopathy . - musculoskeltal : Lumber spine moter stegnth lower extremities ,thigh and legs 5/5 Right side , 5/5 Left side deep tendon reflexes : normal Knee Jerk , normal ankle Jerk lumber facet Loading Test =positive Right , negative Left Range of motion of the lumbar spine Flexion 60 degrees, extension 30 degrees strait leg raising test = negative bilaterally Fabere test= negative bilaterally tenderness over the Sacroiliac joint on the Right side Assessment and Plan Plan: assessment and plan=1- lumbar spondylosis with lumbar facet arthropathy. 2- sacroiliitis. She continue to have severe low back pain after RFA of the right medial branch lumbar area SHE will be good candidate to have a repeat RFA of the right sacroiliac joint (RFA Right L5-S1 dorsal ramus ,RFA right lateral branches S1 ,S2 ,S3 ) Time with Patient: Less than 30 PQRS Measure Charge Sheet Measure #130: Documentation of Current Meds in Medical Chart: Patient's medications documented in chart Measure #226: Tobacco Use: Screen & Cessation Intervention: Pt not a tobacco user Measure #111: Pneumonia Vaccination: Pneumococcal vaccine NOT administered or previously given Measure #47: Advance Care Plan: Advance care planning discussed & documented, pt chose/unable to give Measure #412: Opioid Treatment Agreement: No documentation of signed opioid treatment agreement Measure #408: Opioid Therapy Follow-up Evaluation: Patient had NO f/u eval minimum every 3 months during opioid therapy Measure #317: Preventitive Care & Scrn High Bld Press & F/U: Pre-hypertensive or hypertensive BP documented, pt will f/u with PCP Measure #128: Body Mass Index (BMI) Screening & Follow-up: BMI documented within normal parameters Measure #131: Pain Assessment & Follow-up: Pain positive & plan documented, Follow-up scheduled Measure #431: Unhealthy Alcohol Use Preventative Care & Scrn: Patient not identified as an unhealthy alcohol user PQRS Narrative: Time with Patient: Less than 30
== END | disposition home or self-care (01) ==
LOC: PNWHC3 12:09
PROVIDERS: ATTEND Specialist
DX: M47.816 Spondylosis without myelopathy or radiculopathy, lumbar region (principal); M46.1 Sacroiliitis, not elsewhere classified
CPT/HCPCS: 99211

== ENCOUNTER 2020-07-05 09:52 | Day surgery (SDC) | payer OTHER ==
[2020-07-03 12:20] VITALS: BMI 24.3
[2020-07-05 10:23] VITALS: TEMP 98.5
[2020-07-05] MEDS ORDERED: TRIAMCINOLONE ACETONIDE 40 MG/ML 1 ML VIAL ONE (10:49)
[2020-07-05] MEDS ORDERED: IOPAMIDOL M200 10 ML VIAL ONE (10:49)
[2020-07-05] MEDS ORDERED: ROPIVACAINE 5MG/ML 20ML VIAL ONE (10:49)
--- NOTE | 2020-07-05 10:58 | P.PCN ---
Date of Procedure: 07/05/20 Description of Procedure: Preoperative diagnoses: right sacroilitis Postoperative diagnoses: right sacroilitis. Procedure: right sacroiliac joint steroid injection under fluoroscopic guidance. Surgeon: Noel Garcia MD Anesthesia: [2 mL of 1% lidocaine and moderate sedation per hospital guidelines] Fluoroscopy was used for the procedure and fluoroscopic images were saved to the radiology portion of the patient's chart. EBL: None Procedure indication: The patient had a history of severe chronic low back pain, diagnosed with sacroiliitis unresponsive to conservative treatment. Procedure description: The patient was seen and identified in the preoperative holding area, risks and benefits and alternative of the procedure and possible complications discussed with the patient, and patient agreed with the preceding, patient signed the consent, an IV was started, and vital signs were monitored and were stable throughout the procedure, patient was placed in the prone position on table and the lumbosacral area was prepped and draped with a sterile fashion, vital signs were closely monitored during the procedure, the fluoroscopy camera was placed in the contralateral oblique view on the right sacroiliac joint and the lower part of the joint was identified . Then the skin and subcutaneous tissue was anesthetized using 2 mL of 1% lidocaine then a 22- gauge Quincke-type spinal needle advanced slowly under fluoroscopy and placed in the posterior and inferior border of the right sacroiliac joint, placement confirmed with AP and lateral view, and after appropriate needle placement confirmed and after negative aspiration for heme, 1 mL of Isovue 200 was injected revealing intra-articular spread. Then a solution consisting of 2 ml of ropivacaine 0.5% and 40 mg of Kenalog injected after negative aspiration, no paresthesia during the injection, no resistance to injection, and the needle was removed. Patient tolerated the procedure well without any complication. The patient was returned to supine position after the back was cleaned and a Band-Aid applied, the patient was transported to recovery room in stable condition and monitored for 30 minutes before being discharged home. The patient will follow up for repeat procedure in 2-4 weeks.
[2020-07-05 11:06] VITALS: RESP 16
[2020-07-05 11:30] VITALS: BP 137/79; PULSE 80
--- NOTE | 2020-07-05 12:23 | FL ---
Fluoroscopy HISTORY: Pain 8 seconds fluoroscopy time supplied to the referring clinician. 1 intraoperative C-arm images docume nt the procedure. See dictated report from anesthesia.
== END 2020-07-05 11:38 | disposition home or self-care (01) ==
LOC: ORPAIN 09:52
PROVIDERS: ATTEND Anesthesiology
DX: M46.1 Sacroiliitis, not elsewhere classified (principal); Z78.0 Asymptomatic menopausal state
CPT/HCPCS: J3301; Q9966; J2795; G0260; 27096

== ENCOUNTER → 2020-08-17 | Outpatient (CLI) | payer OTHER ==
--- NOTE | 2020-08-17 15:24 | MR ---
EXAMINATION TYPE: MR lumbar spine wo con DATE OF EXAM: 08/17/2020 COMPARISON: NONE HISTORY: Scoliosis, intervertebral disc degeneration, right-sided sciatica, weakness all per order. S evere chronic back pain since 2017 into right lower extremity per patient. TECHNIQUE: Multiplanar, multisequence imaging of the lumbar spine is performed without IV contrast. FINDINGS: Localizer images show dextroconvex scoliosis centered near thoracolumbar junction. Sagittal images of the lumbar spine show vertebral body heights and alignment to appear satisfactory. Multile marco antonio disc desiccation. Moderate disc space narrowing L5-S1 level with vacuum disc phenomenon. The con us medullaris is normal in position and signal ending mid L1 level. The bone marrow signal intensity is within normal limits. Axial images show T12-L1, L1-L2, L2-L3, and L3-L4 levels all to appear within normal limits. Axial images at L4-L5 levels with tiny central disc protrusion minimally effacing the anterior thecal sac. Axial images at L5-S1 level show mild/moderate right greater than left facet arthropathy and ligament um flavum hypertrophy. There is mild broad disc bulge with right foraminal disc protrusion component causing [id number] right-sided neural foraminal narrowing encroaching on the right L5 nerve i n the sagittal image 13. The left-sided neural foramen is patent. Paraspinal muscle bulk is preserved. IMPRESSION: Scoliosis and multilevel degenerative changes as detailed above. Attention to L5-S1 level where right foraminal disc protrusion causes severe right-sided neural foraminal narrowing and encro achment on the exiting right L5 nerve likely accounting for patient's radiculopathy type symptoms.
== END | disposition home or self-care (01) ==
LOC: RADMRIMAIN 13:40
PROVIDERS: ATTEND Physician Assistant Medical
DX: M48.061 Spinal stenosis, lumbar region without neurogenic claudication (principal); M51.27 Other intervertebral disc displacement, lumbosacral region; M47.816 Spondylosis without myelopathy or radiculopathy, lumbar region; M41.85 Other forms of scoliosis, thoracolumbar region
CPT/HCPCS: 72148

== ENCOUNTER → 2020-09-03 | Outpatient (CLI) | payer OTHER ==
--- NOTE | 2020-09-04 13:44 | MM ---
Reason for exam: screening (asymptomatic). Last mammogram was performed 2 years and 1 month ago. History: Patient is postmenopausal. Family history of breast cancer in maternal grandmother. Took hormonal contraceptives for 15 years beginning at age 25. Physical Findings: A clinical breast exam by your physician is recommended on an annual basis and results should be correlated with mammographic findings. MG Screening Mammo w CAD Bilateral CC and MLO view(s) were taken. Prior study comparison: August 12, 2018, bilateral MG screening mammo w CAD. August 08, 2016, bilateral MG screening mammo w CAD. The breast tissue is extremely dense which could obscure a lesion on mammography. Focal asymmetry on right CC and MLO, may be two separate focal asymmetries. This finding is changed when compared with previous exams. ASSESSMENT: Incomplete: need additional imaging evaluation, BI-RAD 0 RECOMMENDATION: Special view mammogram of the right breast. If lesion persists on supplemental views, image directed ultrasound is recommended. [facility] will attempt to contact patient to return for supplemental views and ultrasound if indicated.
== END | disposition home or self-care (01) ==
LOC: RADMAMWWP 12:53
PROVIDERS: ATTEND Family Medicine
DX: Z12.31 Encounter for screening mammogram for malignant neoplasm of breast (principal)
CPT/HCPCS: 77067

== ENCOUNTER 2020-09-04 11:04 | Day surgery (SDC) | payer OTHER ==
[2020-08-31 14:49] VITALS: BMI 25.1
[2020-09-04 11:17] VITALS: RESP 16; TEMP 98.2
[2020-09-04] MEDS ORDERED: methylPREDNISolone ACETATE 40 MG/ML 1 ML VIAL ONE (11:47)
[2020-09-04] MEDS ORDERED: ROPIVACAINE 5MG/ML 20ML VIAL ONE (11:47)
[2020-09-04] MEDS ORDERED: IOPAMIDOL M200 10 ML VIAL ONE (11:47)
--- NOTE | 2020-09-04 11:56 | P.PCN ---
Date of Procedure: 09/04/20 Description of Procedure: Preoperative diagnoses: right sacroilitis Postoperative diagnoses: right sacroilitis. Procedure: right sacroiliac joint steroid injection under fluoroscopic guidance. Surgeon: Noel Garcia MD Anesthesia: [2 mL of 1% lidocaine and moderate sedation per hospital guidelines] Fluoroscopy was used for the procedure and fluoroscopic images were saved to the radiology portion of the patient's chart. EBL: None Procedure indication: The patient had a history of severe chronic low back pain, diagnosed with sacroiliitis unresponsive to conservative treatment. Procedure description: The patient was seen and identified in the preoperative holding area, risks and benefits and alternative of the procedure and possible complications discussed with the patient, and patient agreed with the preceding, patient signed the consent, an IV was started, and vital signs were monitored and were stable throughout the procedure, patient was placed in the prone position on table and the lumbosacral area was prepped and draped with a sterile fashion, vital signs were closely monitored during the procedure, the fluoroscopy camera was placed in the contralateral oblique view on the right sacroiliac joint and the lower part of the joint was identified . Then the skin and subcutaneous tissue was anesthetized using 2 mL of 1% lidocaine then a 22- gauge Quincke-type spinal needle advanced slowly under fluoroscopy and placed in the posterior and inferior border of the right sacroiliac joint, placement confirmed with AP and lateral view, and after appropriate needle placement confirmed and after negative aspiration for heme, 1 mL of Isovue 200 was injected revealing intra-articular spread. Then a solution consisting of 2 ml of ropivacaine 0.5% and 40 mg of Kenalog injected after negative aspiration, no paresthesia during the injection, no resistance to injection, and the needle was removed. Patient tolerated the procedure well without any complication. The patient was returned to supine position after the back was cleaned and a Band-Aid applied, the patient was transported to recovery room in stable condition and monitored for 30 minutes before being discharged home. The patient will follow up in clinic in 2-4 weeks.
[2020-09-04 12:01] VITALS: BP 125/88; PULSE 73
--- NOTE | 2020-09-04 14:21 | FL ---
Fluoroscopy HISTORY: Pain 3 seconds fluoroscopy time supplied to the referring clinician. 1 intraoperative C-arm images docume nt the procedure. See dictated report from anesthesia.
== END 2020-09-04 12:27 | disposition home or self-care (01) ==
LOC: ORPAIN 11:04
PROVIDERS: ATTEND Anesthesiology
DX: G89.29 Other chronic pain (principal); M46.1 Sacroiliitis, not elsewhere classified; Z78.0 Asymptomatic menopausal state
CPT/HCPCS: J1030; Q9966; J2795; G0260; 27096

== ENCOUNTER → 2020-09-06 | Outpatient (CLI) | payer OTHER ==
--- NOTE | 2020-09-07 10:35 | MM ---
Reason for exam: additional evaluation requested from abnormal screening. Last mammogram was performed less than 1 month ago. History: Patient is postmenopausal. Family history of breast cancer in maternal grandmother. Took hormonal contraceptives for 15 years beginning at age 25. Physical Findings: Nurse did not find any significant physical abnormalities on exam. MG Work Up Mamm w CAD RT Spot compression CC, spot compression MLO, and LM view(s) were taken of the right breast. Prior study comparison: September 03, 2020, bilateral MG screening mammo w CAD. August 12, 2018, bilateral MG screening mammo w CAD. The breast tissue is extremely dense which could obscure a lesion on mammography. There is no discrete abnormality including area of concern right upper outer quadrant. No significant new findings when compared with previous films. These results were verbally communicated with the patient and result sheet given to the patient on 09/06/20. ASSESSMENT: Probably benign, BI-RAD 3 RECOMMENDATION: Follow-up diagnostic mammogram of the right breast in 6 months.
== END | disposition home or self-care (01) ==
LOC: RADMAMWWP 09:43
PROVIDERS: ATTEND Family Medicine
DX: R92.8 Other abnormal and inconclusive findings on diagnostic imaging of breast (principal)
CPT/HCPCS: 77065

== ENCOUNTER → 2020-11-12 | Outpatient (CLI) | payer OTHER ==
[2020-11-12 13:22] VITALS: BP 134/74; PULSE 73; RESP 16; TEMP 97.9
--- NOTE | 2020-11-12 13:51 | P.PN ---
Subjective Progress Note Date: 11/12/20 This is a follow-up visit for this 49 years old female with a chronic history of severe low back pain ,she is diagnosed with right sacroiliitis, and lumbar spondylosis with lumbar facet arthropathy, previously we have done right-sided sacroiliac joint steroid injection ,and she gets excellent relief for short- term, currently, she is complaining of severe low back pain ,mainly on the right side with radiation to the right buttock the pain increases with any activity, interfere with the quality of life she denies any motor or sensory deficit ,she denies any fever ,or night sweats Objective - Vital Signs Vital signs: Vital Signs Temp 97.9 F 11/12/20 13:16 Pulse 73 11/12/20 13:16 Resp 16 11/12/20 13:16 BP 134/74 11/12/20 13:16 Pulse Ox 100 11/12/20 13:16 - Exam Physical Examinations : -Constitutiona : Cooperative , not in acute distress . -HEENT : nech : supple , no Lymphadenopathy , normal thyroid size . : eyes : no ptosis , no icterus, no photophobia . - neurologic : Cranial nerve II to XII intact , no focal neurological deffecit . -psychatric : alert , oriented X 3 , appropriate affect , intact judgment and insight . -Lymphatic : no Lymphadenopathy . - musculoskeltal : Lumber spine moter stegnth lower extremities ,thigh and legs 5/5 Right side , 5/5 Left side deep tendon reflexes : normal Knee Jerk , normal ankle Jerk lumber facet Loading Test =positive Right , negative left Range of motion of the lumbar spine Flexion 60 degrees, extension 30 degrees strait leg raising test = negative bilaterally Fabere test= negative bilaterally Sever tenderness over the Sacroiliac joint on the Right side only . Gaenslen test= positive right ,and negative left . Seated flexion test= positive right ,and negative Left . Distraction test= positive on the right side only Sacroiliac compression test= positive on the right side only Assessment and Plan Plan: Assessment and plan=1-right sacroiliitis. 2-right sacroiliac joint dysfunction. 3-lumbar spondylosis with lumbar facet arthropathy. Patient could benefit from repeat right-sided sacroiliac steroid injection under fluoroscopy guidance. - PQRS measures = - Patient's medications are documented in the chart. -Tobacco use is negative and counseling.Given. -Patient's has not received pneumococcal vaccine. -Advanced care planning discussed, patient not eligible. -Opiate contract not signed. -Pain positive and follow-up visit/procedure is scheduled. -Patient's blood pressure measured [ 134/74 ] , and documented in the record ,and patient will follow up with the primary care. -Patient's weight was measured and body mass index [ ] above the normal limits and counseling was done. and patient instructed to follow-up with the primary care physician. -Patient was not identified as an unhealthy alcohol user Time with Patient: Less than 30
== END ==
LOC: PNWHC3 12:48
PROVIDERS: ATTEND Specialist
DX: M46.1 Sacroiliitis, not elsewhere classified (principal); M53.3 Sacrococcygeal disorders, not elsewhere classified; M47.816 Spondylosis without myelopathy or radiculopathy, lumbar region
CPT/HCPCS: 99211

== ENCOUNTER 2020-12-11 11:06 | Day surgery (SDC) | payer OTHER ==
[2020-12-07 09:47] VITALS: BMI 24.7
[2020-12-11 11:27] VITALS: TEMP 97.7
[2020-12-11] MEDS ORDERED: IOPAMIDOL M200 10 ML VIAL ONE (12:00)
[2020-12-11] MEDS ORDERED: DEXAMETHASONE SOD PHOSPHATE 10 MG/ML 1 ML VIAL ONE (12:00)
--- NOTE | 2020-12-11 12:18 | P.PCN ---
Date of Procedure: 12/11/20 Preoperative Diagnosis: Lumbar disc herniation, and lumbar radiculopathy Postoperative Diagnosis: Lumbar disc herniation, lumbar radiculopathy Anesthesia: local Surgeon: Kenny Olivas Estimated Blood Loss (ml): 0 IV fluids (ml): 0 Urine output (ml): 0 Pathology: none sent Condition: stable Disposition: PACU Description of Procedure: PROCEDURE: 1) right sided L5-S1 Transforaminal epidural steroid injection under fluoroscopic guidance, 2) Epidurogram SURGEON: Kenny Olivas PELLET PRESS OPERATOR: None ANESTHESIA: Local , and IV sedation: None EBL: None. 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 Came here for repeat procedure. PROCEDURE DESCRIPTION: The patient was seen and identified in the preoperative area. Risks, benefits, complications, and alternatives were discussed with the patient. The patient agreed to proceed with the procedure and signed the consent. and vital signs were stable. Patient was taken to the OR and time out was completed. The patient was placed in the prone position on procedure table and a pillow was placed under the abdomen to reduce lumbar lordosis. The lumbosacral area was prepped with ChloraPrep 1 and draped in the usual sterile fashion. Critical pause was taken. Vital signs were closely monitored during the procedure. Using 20 degree ipsilateral oblique fluoroscopy, the chin of the Edwin dog of L5 was identified, and the skin and deeper tissues just below was localized with 1% lidocaine. 22-guage 5-inch spinal needles were used for the procedure. The needle was guided by fluoroscopy just underneath the chin of the Edwin dog of L5 . Under AP fluoroscopy, the needle was advanced to the 6 o'clock position of the L5 pedicle. After negative aspiration of CSF and blood and with no paresthesias, 1 mL of Isovue-200 contrast dye was injected with good anterior epidural spread and outlining of the L5 nerve root. After negative aspiration 3 mL of block solution injected . Block solution contained 10 mg of dexamethasone, 0.5 mL of 1% lidocaine preservative-free with 1.5 mL of normal saline preservative-free. Needle was removed intact, skin was cleansed, and bandage was applied. COMPLICATIONS: None. DISPOSITION : The patient was placed in a supine position and transferred to the recovery area in a stable condition for observation and was discharged from the recovery room after meeting discharge criteria. Home discharge instructions given to the patient by the staff. The patient was reexamined prior to discharge. The patient will schedule follow-up in the clinic in 4 weeks' duration
[2020-12-11] MEDS ORDERED: LACTATED RINGERS 1,000 ML IV SCH (12:30)
[2020-12-11 12:33] VITALS: BP 110/75; PULSE 76; RESP 18
--- NOTE | 2020-12-11 13:45 | FL ---
Fluoroscopy HISTORY: Pain 8 seconds fluoroscopy time supplied to the referring clinician. 3 intraoperative C-arm images docume nt the procedure. See dictated report from anesthesia.
== END 2020-12-11 12:39 | disposition home or self-care (01) ==
LOC: ORPAIN 11:06
DX: M51.16 Intervertebral disc disorders with radiculopathy, lumbar region (principal); Z79.1 Long term (current) use of non-steroidal anti-inflammatories (NSAID); Z98.890 Other specified postprocedural states; Z78.0 Asymptomatic menopausal state
CPT/HCPCS: 64483; J1100; Q9966

== ENCOUNTER 2021-01-03 12:17 | Day surgery (SDC) | payer OTHER ==
[2021-01-02 09:37] VITALS: BMI 24.7
[2021-01-03 12:33] VITALS: TEMP 98
[2021-01-03] MEDS ORDERED: ROPIVACAINE 5MG/ML 20ML VIAL ONE (13:04)
[2021-01-03] MEDS ORDERED: methylPREDNISolone ACETATE 40 MG/ML 1 ML VIAL ONE (13:04)
--- NOTE | 2021-01-03 13:15 | P.PCN ---
Date of Procedure: 01/03/21 Procedure(s) Performed: Procedure= Right sacroiliac joints steroid injection under fluoroscopy guidance (fluoroscopy image stored on file in the radiology Department ) Preoperative diagnosis= 1- Right sacroiliitis 2-lumbar radiculopathy 3-lumbar facet arthropathy Postoperative diagnosis=Same as preop Diagnosis . Complication = none Condition= stable Anesthesia= local anesthtics with Ropivacaine 0.5 % 3 ml . Indication for the procedure= patient complaining of low back pain , examination was positive for severe tenderness over the sacroiliac joints bilaterally and patient diagnosed with sacroiliitis, for this reason she was good candidate for sacroiliac joint steroid injection. Description of the procedure= procedure risk and benefits discussed with the patient, including but not limited, risk of infection and bleeding, and ALLERGIC reaction to the medication and not complete pain relief and patient agreed with the preceding patient taken to the operating room, placed in prone position or standard monitors applied to the patient then after induction of anesthesia back prepped with chlorhexidine 3 times , Then under strict sterile technique, first I did the right sacroiliac joint the which was identified under fluoroscopy guidance been local infiltration of the skin and subcu interstitial with lidocaine 1% then 22-gauge Quincke Needle advanced slowly under fluoroscopy and placed in the right sacroiliac joint needle placement confirmed with AP and oblique and lateral view and after appropriate needle placement confirmed and after negative aspiration, or heme , then Ropivacaine 0.5% 4 mL, and 40 mg of Depo-Medrol mixed together and injected in the right sacroiliac joint after negative aspiration patient tolerated the procedure well without any complication. s
[2021-01-03 13:28] VITALS: BP 138/89; PULSE 67; RESP 16
--- NOTE | 2021-01-03 13:47 | FL ---
EXAMINATION TYPE: FL guided pain mgmt statistic DATE OF EXAM: 01/03/2021 HISTORY: Fluoroscopy time 3 seconds of fluoroscopy provided. IMPRESSION: 1. Fluoroscopy time.
== END 2021-01-03 13:40 | disposition home or self-care (01) ==
LOC: ORPAIN 12:17
PROVIDERS: ATTEND Specialist
DX: M47.26 Other spondylosis with radiculopathy, lumbar region (principal); M46.1 Sacroiliitis, not elsewhere classified; N95.9 Unspecified menopausal and perimenopausal disorder
CPT/HCPCS: J1030; J2795; G0260; 27096

== ENCOUNTER → 2021-01-28 | Outpatient (CLI) | payer OTHER ==
[2021-01-28 12:57] VITALS: BP 120/76; PULSE 72; RESP 16; TEMP 98.3
--- NOTE | 2021-01-28 13:25 | P.PN ---
Subjective Progress Note Date: 01/28/21 This is a follow-up visit for this 50 years old female with a chronic history of severe low back pain ,she is diagnosed with right sacroiliitis, and lumbar spondylosis with lumbar facet arthropathy, previously we have done right-sided sacroiliac joint steroid injection ,and previously we have done also RFA of the right sacroiliac joint, and she get long-term benefit from it for more than a year, currently, she is complaining of severe low back pain ,mainly on the right side with radiation to the right buttock the pain increases with any activity, interfere with the quality of life she denies any motor or sensory deficit ,she denies any fever ,or night sweats Physical Examinations : -Constitutiona : Cooperative , not in acute distress . -HEENT : nech : supple , no Lymphadenopathy , normal thyroid size . : eyes : no ptosis , no icterus, no photophobia . - neurologic : Cranial nerve II to XII intact , no focal neurological deffecit . -psychatric : alert , oriented X 3 , appropriate affect , intact judgment and insight . -Lymphatic : no Lymphadenopathy . - musculoskeltal : Lumber spine moter stegnth lower extremities ,thigh and legs 5/5 Right side , 5/5 Left side deep tendon reflexes : normal Knee Jerk , normal ankle Jerk lumber facet Loading Test =positive Right , negative left Range of motion of the lumbar spine Flexion 60 degrees, extension 30 degrees strait leg raising test = negative bilaterally Fabere test= negative bilaterally Sever tenderness over the Sacroiliac joint on the Right side only . Gaenslen test= positive right ,and negative left . Seated flexion test= positive right ,and negative Left . Distraction test= positive on the right side only Sacroiliac compression test= positive on the right side only Assessment and Plan Plan: Assessment and plan=1-right sacroiliitis. 2-right sacroiliac joint dysfunction. 3-lumbar spondylosis with lumbar facet arthropathy. Patient could benefit from RFA of the right sacroiliac joint, this is not approved by insurance ,then we can repeat right- sided sacroiliac joint steroid injection, this with the patient the option of sending her for evaluation by spine surgeon, regarding fusion of the right sacroiliac joint, she is concerned about the surgery, and she doesn't want to have surgery and this point - PQRS measures = - Patient's medications are documented in the chart. -Tobacco use is negative and counseling.Given. -Patient's has not received pneumococcal vaccine. -Advanced care planning discussed, patient not eligible. -Opiate contract not signed. -Pain positive and follow-up visit/procedure is scheduled. -Patient's blood pressure measured [ 120/76] , and documented in the record ,and patient will follow up with the primary care. -Patient's weight was measured and body mass index 25.1[ ] above the normal limits and counseling was done. and patient instructed to follow-up with the primary care physician. -Patient was not identified as an unhealthy alcohol user Objective - Vital Signs Vital signs: Vital Signs Temp 98.3 F 01/28/21 12:54 Pulse 72 01/28/21 12:54 Resp 16 01/28/21 12:54 BP 120/76 01/28/21 12:54 Pulse Ox 100 01/28/21 12:54 Intake & Output 01/27/21 01/28/21 01/28/21 18:59 06:59 18:59 Weight 77.111 kg
== END ==
LOC: PNWHC3 12:38
PROVIDERS: ATTEND Specialist
DX: M46.1 Sacroiliitis, not elsewhere classified (principal); M47.816 Spondylosis without myelopathy or radiculopathy, lumbar region; M53.3 Sacrococcygeal disorders, not elsewhere classified
CPT/HCPCS: 99211

== ENCOUNTER 2021-02-19 10:47 | Day surgery (SDC) | payer OTHER ==
[2021-02-18 10:47] VITALS: BMI 24.3
[2021-02-19 11:20] VITALS: TEMP 96.9
--- NOTE | 2021-02-19 11:23 | P.PCN ---
Date of Procedure: 02/19/21 Description of Procedure: Preoperative diagnoses: right sacroilitis Postoperative diagnoses: right sacroilitis. Procedure: Right sacroiliac joint steroid injection under fluoroscopic guidance. Surgeon: Fito Gordillo MD Anesthesia: [2 mL of 1% lidocaine and moderate sedation per hospital guidelines] Fluoroscopy was used for the procedure and fluoroscopic images were saved to the radiology portion of the patient's chart. EBL: None Procedure indication: The patient had a history of severe chronic low back pain, diagnosed with sacroiliitis unresponsive to conservative treatment. Procedure description: The patient was seen and identified in the preoperative holding area, risks and benefits and alternative of the procedure and possible complications discussed with the patient, and patient agreed with the preceding, patient signed the consent, an IV was started, and vital signs were monitored and were stable throughout the procedure, patient was placed in the prone position on table and the lumbosacral area was prepped and draped with a sterile fashion, vital signs were closely monitored during the procedure, the fluoroscopy camera was placed in the contralateral oblique view on the right sacroiliac joint and the lower part of the joint was identified . Then the skin and subcutaneous tissue was anesthetized using 2 mL of 1% lidocaine then a 22- gauge Quincke-type spinal needle advanced slowly under fluoroscopy and placed in the posterior and inferior border of the right sacroiliac joint, placement confirmed with AP and lateral view, and after appropriate needle placement confirmed and after negative aspiration for heme, 1 mL of Isovue 200 was injected revealing intra-articular spread. Then a solution consisting of 2 ml of ropivacaine 0.5% and 40 mg of Kenalog injected after negative aspiration, no paresthesia during the injection, no resistance to injection, and the needle was removed. Patient tolerated the procedure well without any complication. The patient was returned to supine position after the back was cleaned and a Band-Aid applied, the patient was transported to recovery room in stable condition and monitored for 30 minutes before being discharged home. The patient will follow up in clinic in 2-4 weeks.
[2021-02-19] MEDS ORDERED: TRIAMCINOLONE ACETONIDE 40 MG/ML 1 ML VIAL ONE (12:03)
[2021-02-19] MEDS ORDERED: ROPIVACAINE 5MG/ML 20ML VIAL ONE (12:03)
[2021-02-19] MEDS ORDERED: IOPAMIDOL M200 10 ML VIAL ONE (12:03)
[2021-02-19 12:37] VITALS: BP 105/72; PULSE 72; RESP 18
--- NOTE | 2021-02-19 13:26 | FL ---
Fluoroscopy HISTORY: Pain 5 seconds fluoroscopy time supplied to the referring clinician. 1 intraoperative C-arm images docume nt the procedure. See dictated report from anesthesia.
== END 2021-02-19 12:38 | disposition home or self-care (01) ==
LOC: ORPAIN 10:47
PROVIDERS: ATTEND Anesthesiology
DX: G89.29 Other chronic pain (principal); M46.1 Sacroiliitis, not elsewhere classified; N95.9 Unspecified menopausal and perimenopausal disorder
CPT/HCPCS: J3301; Q9966; J2795; G0260; 27096

== ENCOUNTER → 2021-03-07 | Outpatient (CLI) | payer OTHER ==
--- NOTE | 2021-03-12 13:22 | MM ---
Reason for exam: follow-up at short interval from prior study. Last mammogram was performed 6 months ago. History: Patient is postmenopausal. Family history of breast cancer in maternal grandmother. Took hormonal contraceptives for 15 years beginning at age 25. Physical Findings: Nurse did not find any significant physical abnormalities on exam. MG Diagnostic Mammo RT w CAD CC, MLO, and XCCL view(s) were taken of the right breast. Prior study comparison: September 06, 2020, right breast MG work up mamm w CAD RT. September 03, 2020, bilateral MG screening mammo w CAD. The breast tissue is heterogeneously dense. This may lower the sensitivity of mammography. Finding: There are typically benign vascular, round calcifications in the right breast. There is no discrete abnormality on current study. These results were verbally communicated with the patient and result sheet given to the patient on 03/07/21. ASSESSMENT: Benign, BI-RAD 2 RECOMMENDATION: Follow-up diagnostic mammogram of both breasts in 6 months.
== END | disposition home or self-care (01) ==
LOC: RADMAMWWP 11:04
PROVIDERS: ATTEND Family Medicine
DX: R92.1 Mammographic calcification found on diagnostic imaging of breast (principal); Z78.0 Asymptomatic menopausal state; Z79.3 Long term (current) use of hormonal contraceptives; Z80.3 Family history of malignant neoplasm of breast
CPT/HCPCS: 77065

== ENCOUNTER → 2021-04-22 | Outpatient (CLI) | payer OTHER ==
[2021-04-22 12:28] VITALS: BP 120/73; PULSE 64; RESP 18
--- NOTE | 2021-04-22 12:39 | P.PN ---
Subjective Progress Note Date: 04/22/21 This is a 50-year-old lady with history of chronic lower back pain on the r ight side of her back with radiation to the upper buttock area. The patient responded very well to sacroiliac joint steroid injection on the right side however her insurance denied her and ablation. The patient is scheduled to have surgery on her right ankle in June of this year for joint replacement and she is going to have right sacroiliac joint fused in the future as she states. The patient would like to proceed with another sacroiliac joint steroid injection on the right side because her pain has been getting worse lately. Patient denies new-onset weakness, bowel/bladder incontinence, or any other signs or symptoms of cauda equina syndrome. There are no signs of acute intoxication, and no indications of medication diversion or overuse. In addition to above, 13-point review of systems is also negative for chest pain, shortness of breath, changes in vision, changes in hearing, new onset weakness, abdominal pain, diarrhea, extreme fatigue, malaise, fever, skin changes, homicidal or suicidal ideation, or bowel or bladder incontinence. Vital Signs: Reviewed in EMR Gen: AAOx3, NAD HEENT: PERRLA,hearing grossly normal Pulm: resp unlabored Neck: supple, trachea midline Neuro exam of the lower extremities: Normal muscle strength bilaterally and symmetrically over due to her right ankle pain and she was not able to dorsiflex her ankle on the right side Straight leg raising test: Hu's test: Positive on the right side Range of motion of the lumbar spine: Facet loading test: Tenderness in the paravertebral musculature: *Tenderness around the right sacroiliac joint Neuro: CN II-XII grossly intact, Imaging: Reviewed in EMR/chart Assessment: Right sacroiliitis and sacral joint dysfunction Lumbar spondylosis without myelopathy Osteoarthritis in the right ankle Plan: 1. Explanation: When patients on opioids, opioid and psychological risk scores were reviewed. Diagnoses, prognoses, and multiple treatment options including but not limited to physical therapy, interventional therapies, adjuvant medical therapies, narcotic medication therapies, and surgery were discussed with the patient and all questions were answered to the patient's satisfaction. 2. Opioid agreement:When patients are prescribed opoids through our clinic, opioid agreement is signed with the patient and the patient is warned not to use opioids while driving or before driving and not to combine opioids with benzodiazepines or alcohol. 3. Counseling: When patient is smoking or obese, the patient was counseled extensively on SMOKING CESSATION, BODY MASS INDEX, EXERCISE. Specifically, the patient was instructed regarding the importance of smoking cessation, obesity, and exercise in the context of both chronic pain and overall health. 4. Procedures: Schedule for right sacroiliac joint steroid injection under fluoroscopic guidance 5. Consultations: None 6. Investigations: None 7. Medications: none Prescribed 8. Disposition: Proceed with the above-mentioned procedure as soon as possible 9. Maps were reviewed and were appropriate. Objective - Vital Signs Vital signs: Vital Signs Temp Pulse 64 04/22/21 12:25 Resp 18 04/22/21 12:25 BP 120/73 04/22/21 12:25 Pulse Ox 100 04/22/21 12:25
== END ==
LOC: PNWHC3 12:16
PROVIDERS: ATTEND Anesthesiology
DX: M46.1 Sacroiliitis, not elsewhere classified (principal); M53.3 Sacrococcygeal disorders, not elsewhere classified; M47.816 Spondylosis without myelopathy or radiculopathy, lumbar region; M19.071 Primary osteoarthritis, right ankle and foot; Z87.891 Personal history of nicotine dependence
CPT/HCPCS: 99211

== ENCOUNTER → 2021-06-06 | Outpatient (CLI) | payer OTHER ==
--- NOTE | 2021-06-06 16:22 | BD ---
EXAMINATION TYPE: Axial Bone Density DATE OF EXAM: 06/06/2021 COMPARISON: NONE CLINICAL HISTORY: 50 YR OLD FEMALE.....ICD-10 CODE: M85.80 DISORDER OF BD Height: 67 Weight: 170 FRAX RISK QUESTIONS: Glucocorticoids (More than 3mos): YES (Ex: prednisone, prednisolone, methylprednisolone, dexamethasone, and hydrocortisone). History of Fracture in Adulthood: YES RISK FACTORS HISTORY OF: HX OF RT ANKLE FX, LOOKING FOR REPLACEMENT TO FOLLOW, LT ARM A CHILD, RT PATELLAR FX History of Wrist Fracture: LEFT CHILD Postmenopausal woman: YES, AT AGE 48 YRS OLD Hyperparathyroidism: NO Adrenal Insufficiency: NO MEDICATIONS: Prednisone or other steroids: YES, FOR PAIN ON AND OFF SINCE 1998 Additional Medications: VIT D3, NORCO Additional History: PAIN, ARTHRITIS EXAM MEASUREMENTS: Bone mineral densitometry was performed using the [employer] System. Bone mineral density as measured about the Lumbar spine is: ----- L1-L4(G/cm2): 0.786 T Score Values are as follows: ----- L1: -3.6 ----- L2: -3.6 ----- L3: -3.6 ----- L4: -2.9 ----- L1-L4: -3.3 Bone mineral density FIRST BONE DENSITY SCAN......BASELINE STUDY Bone mineral density about the R hip (g/cm2): 0.670 Bone mineral density about the L hip (g/cm2): 0.741 T Score values are as follows: -----R Neck: -2.0 -----L Neck: -1.8 -----R Total: -2.7 -----L Total: -2.1 Bone mineral density BASELINE STUDY FRAX%s: THERE IS A 19.2% CHANCE FOR A MAJOR OSTEOPOROTIC FX AND A 3.3% FOR HIP......PROBABILITY FO R FX IN 10 YRS TIME IMPRESSION: Osteoporosis (T Score less than -2.5). There is increased fracture risk and therapy is usually indicated based on age. Re-Screen 1-2 years. NOTE: T-SCORE=SD OF THE YOUNG ADULT MEAN.
== END | disposition home or self-care (01) ==
LOC: RADBDWWP 12:27
PROVIDERS: ATTEND Family Medicine
DX: M81.0 Age-related osteoporosis without current pathological fracture (principal); M85.89 Other specified disorders of bone density and structure, multiple sites; Z79.52 Long term (current) use of systemic steroids
CPT/HCPCS: 77080

== ENCOUNTER 2021-08-20 09:23 | Day surgery (SDC) | payer OTHER ==
[2021-08-14 11:04] VITALS: BMI 25.1
[2021-08-20 09:39] VITALS: RESP 16
[2021-08-20] MEDS ORDERED: methylPREDNISolone ACETATE 40 MG/ML 1 ML VIAL ONE (09:45)
[2021-08-20] MEDS ORDERED: ROPIVACAINE 5MG/ML 20ML VIAL ONE (09:45)
[2021-08-20] MEDS ORDERED: IOPAMIDOL M200 10 ML VIAL ONE (09:45)
--- NOTE | 2021-08-20 09:48 | P.PCN ---
Date of Procedure: 08/20/21 Description of Procedure: Procedure: Sacroiliac joint injection right Preoperative diagnosis: Sacroiliitis Postoperative diagnosis: Sacroiliitis Imaging: Fluoroscopy was used, images where saved to the medical record Complications: none Anesthesia: 1% lidocaine 5cc only Description of the procedure: procedure risk and benefits discussed with the patient, including but not limited, risk of infection and bleeding, and allergic reaction to the medication and incomplete pain relief. Patient agreed and signed consent. Patient was taken to the room and placed in a prone position. Chlorhexidine was used to cleanse the skin. Under sterile conditions patient skin was anesthetized 1% lidocaine. Subcutaneous tissues were also anesthetized with a total 5 mL of 1% lidocaine. After that, a 22-gauge spinal needle was advanced through the anesthetized location under fluoroscopic guidance. Needle was advanced into the inferior portion of the sacroiliac joint. IV contrast was used to confirm spread within the joint. After adequate spread was achieved, 2.5 ML's of 0.5% ropivacaine with 40 mg of methylprednisolone was injected into the joint. Patient tolerated the procedure well. Sent to the recovery room in stable condition. Patient will follow up as directed in the clinic.
--- NOTE | 2021-08-20 10:17 | FL ---
EXAMINATION TYPE: FL guided pain mgmt statistic DATE OF EXAM: 08/20/2021 HISTORY: Fluoroscopy time 11 seconds of fluoroscopy provided. IMPRESSION: 1. Fluoroscopy time.
[2021-08-20 10:20] VITALS: BP 119/87; PULSE 78
== END 2021-08-20 10:27 | disposition home or self-care (01) ==
LOC: ORPAIN 09:23
PROVIDERS: ATTEND Hospitalist
DX: M47.817 Spondylosis without myelopathy or radiculopathy, lumbosacral region (principal); M46.1 Sacroiliitis, not elsewhere classified
CPT/HCPCS: J1030; Q9966; J2795; G0260; 27096

== ENCOUNTER → 2021-09-23 | Outpatient (CLI) | payer OTHER ==
--- NOTE | 2021-09-23 11:47 | MM ---
Reason for exam: follow-up at short interval from prior study. Last mammogram was performed 7 months ago. History: Patient is postmenopausal. Family history of breast cancer in maternal grandmother. Took hormonal contraceptives for 15 years beginning at age 25. MG Diagnostic Mammo w CAD JOSE Bilateral CC, MLO, and XCCL view(s) were taken. Prior study comparison: March 07, 2021, right breast MG diagnostic mammo RT w CAD. September 06, 2020, right breast MG work up mamm w CAD RT. The breast tissue is heterogeneously dense. This may lower the sensitivity of mammography. Focal asymmetry right CC, not on XCCL. This finding is changed when compared with previous exams. These results were verbally communicated with the patient and result sheet given to the patient on 09/23/21. ASSESSMENT: Probably benign, BI-RAD 3 RECOMMENDATION: Follow-up diagnostic mammogram of both breasts in 6 months.
== END | disposition home or self-care (01) ==
LOC: RADMAMWWP 10:57
PROVIDERS: ATTEND Family Medicine
DX: R92.8 Other abnormal and inconclusive findings on diagnostic imaging of breast (principal); Z78.0 Asymptomatic menopausal state; Z80.3 Family history of malignant neoplasm of breast
CPT/HCPCS: 77066

== ENCOUNTER → 2021-10-31 | Day surgery (SDC) | payer OTHER ==
[2021-10-30 08:22] VITALS: BMI 25.4
[2021-10-31 10:01] VITALS: BP 116/72; PULSE 96; RESP 18; TEMP 98.8
--- NOTE | 2021-10-31 10:11 | P.PN ---
Subjective Progress Note Date: 10/31/21 Patient presents today for a injection of trigger points in her lumbar spine. She reports that she is not having any pain today. She has been following up with a chiropractor over last 3 weeks which is new from the time we last seen her. She reports that her pain is significantly better not having any pain today. She has pain is mostly with walking for extended periods of time. There is no significant radicular symptoms. She still has pain in the right ankle is had a total ankle replacement. Objective - Vital Signs Vital signs: Vital Signs Temp 98.8 F 10/31/21 09:59 Pulse 96 10/31/21 09:59 Resp 18 10/31/21 09:59 BP 116/72 10/31/21 09:59 Pulse Ox 100 10/31/21 09:59 Intake & Output 10/30/21 10/31/21 10/31/21 18:59 06:59 18:59 Weight 78.018 kg 79.7 kg - Exam General: Awake and alert oriented 3 no distress Cervical spine: Normal alignment, Spurling's negative, facet loading negative, [employer] strength is 5/5, tavera negative Lumbar spine: Loss of lumbar lordosis, normal alignment, non tender to palpation over bilateral paraspinal muscles. Straight leg raise is negative. Limited range of motion due to pain with flexion, extension and side bending. Sacroiliac joints: Nontender to palpation, ELENA is negative, Gaenselon negative Neuro exam: Normal sensation in bilateral upper extremities, deep tendon reflexes are 2+ bilateral upper extremities. Normal sensation in bilateral lower extremities. Deep tendon reflexes are 2+ in lower extremities Psych exam: Cooperative, appropriate mood Assessment and Plan Assessment: #1 sacroiliitis #2 low back pain #3 lumbar spondylosis without myelopathy Plan: At this time we will hold off on providing any injections today. 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 We will see her back in the office as needed and determine if any further procedures are necessary. No medications were dispensed today. Time with Patient: Greater than 30
== END ==
LOC: ORPAIN 09:47
PROVIDERS: ATTEND Hospitalist
DX: M46.1 Sacroiliitis, not elsewhere classified (principal); M47.817 Spondylosis without myelopathy or radiculopathy, lumbosacral region; Z53.8 Procedure and treatment not carried out for other reasons; Z96.669 Presence of unspecified artificial ankle joint

== ENCOUNTER → 2022-03-07 | Outpatient (CLI) | payer OTHER ==
--- NOTE | 2022-03-07 11:42 | MM ---
Reason for Exam: Follow-up at short interval from prior study. Last screening mammogram was performed 6 month(s) ago. Patient History: Menarche at age 11. First Full-Term at age 15. Postmenopausal. Hormonal Contraceptives, starting at age 25 for 15 years. Maternal grandmother had breast cancer. Risk Values: Reta 5 year model risk: 0.8%. NCI Lifetime model risk: 6.2%. Prior Study Comparison: 09/06/2020 Right Diagnostic Mammogram, [facility]. 03/07/2021 Right Diagnostic Mammogram, [facility]. 09/23/2021 Bilateral Diagnostic Mammogram, [facility]. Tissue Density: Right: The breast tissue is heterogeneously dense. This may lower the sensitivity of mammography. Findings: Analyzed By CAD. Some benign-appearing round and vascular calcifications in the right breast are redemonstrated. Benign-appearing right axillary lymph nodes incidentally noted. No suspicious new mass or distortion in either breast. Overall Assessment: Negative, BI-RAD 1 Management: Screening Mammogram of both breasts in 6 months. Back on schedule. Results were given to the patient verbally at the time of exam. Electronically signed and approved by: Sg Echeverria M.D.
== END | disposition home or self-care (01) ==
LOC: RADMAMWWP 10:41
PROVIDERS: ATTEND Family Medicine
DX: R92.8 Other abnormal and inconclusive findings on diagnostic imaging of breast (principal); Z78.0 Asymptomatic menopausal state; Z80.3 Family history of malignant neoplasm of breast
CPT/HCPCS: 77065

== ENCOUNTER → 2022-09-04 | Outpatient (CLI) | payer OTHER ==
[2022-09-04 15:13] VITALS: BP 175/100; PULSE 85; RESP 18; TEMP 98
--- NOTE | 2022-09-04 15:14 | P.PAINPG ---
PQRS Measure Charge Sheet Comment: A 51 yr old female with a history of severe and chronic LBP secondary to lumbar DDD and spondylosis with facet arthropathy without myelopathy presents today for LBP. Pain level is provoked at 5 /10 in intensity, constant, localized in the R lumbar spine, dull/ achy in character without shooting pain. Pain is provoked by sitting/ standing/ walking for periods of 15 min or more. Pain is alleviated with chiropractic treatments (19 visits) since Sep 2021, heat, meds (Celebrex), topicals, laying supine and rest. Interventional pain procedures completed include R SI injections, R L3-L5 RFA Patient is currently on Celebrex Patient denies any side effects of the medication(s), denies excessive drowsiness or sleepiness, denies suicidal ideation and reports that the current pain medication is helping to control the pain and improve activities of daily living. Patient denies any motor or sensory deficits. Patient denies any fever or night sweats, denies any change in the bowel movements or urination. Physical Examination: -Constitutional: Cooperative. Not in acute distress . - Neurologic: Cranial nerve II to XII intact. No focal neurological deficits. - Psychatric: Alert & oriented x 3. Matching mood & appropriate affect. Judgment and insight intact. - Musculoskeletal: Cervical spine: Muscle bulk/ tone/ strength in the bilateral upper extremities normal Vertebral body tenderness to palpation over Spurling test positive Distraction test positive Facet loading test positive Thoracic spine Muscle bulk / tone/ strength in the bilateral paraspinal muscles normal Vertebral body tender to palpation over Facet loading test positive Lumbar spine: Motor bulk/ tone/ strength lower extremities , thigh and legs : 5/5 Deep tendon reflexes : Normal Knee Jerk. Normal Ankle Jerk . Vertebral body tenderness to palpation over L4, L5 Lumbar Facet Loading Test positive on R Straight Leg Raise: positive at 30 degrees right side/ left side Gaenslen's Test positive Sacral spine : Severe tenderness over the Sacroiliac joint: right side / left side Range of motion: Flexion of the lumbar spine <60 degrees Range of motion: Extension of the lumbar spine <20 degrees Gaenslen's Test positive Jaz test: positive right side / left side Thigh Thrust Test Sacral Thrust Test Assessment and plan: Chronic LBP secondary to lumbar DDD, spondylosis with facet arthropathy without myelopathy Recommendation of x ray of the lumbar spine re : M51.36 May need additional testing if indicated. May return to clinic within 2-4 wks. All patient questions answered I have spent less than 30 minutes on patient care today. Dr Borden was available by phone for the evaluation of this patient. The time was used to review the medical records including relevant urine studies and Prescription history (MAPs), review of the available imaging, evaluation and examination of the patient, coordination of care with the medical staff and if applicable referring physicians, as well as creation of the medical record PQRS Narrative: Smoking Status Former smoker Hx Alcohol Use (MH) Yes: Social Home Medications: Ambulatory Orders Celecoxib [CeleBREX] 200 mg PO BID 01/10/19 Controlled Substance Measures - Controlled Substance Measures Is patient prescribed a controlled substance at discharge?: No
--- NOTE | 2022-09-04 15:35 | XR ---
EXAM TYPE: LUMBAR SPINE X RAY SERIES COMPARISON: NONE HISTORY: Low back pain TECHNIQUE: 4 views are submitted. FINDINGS: Alignment is anatomic. The pedicles are intact. The transverse processes are intact. There is scol iosis with multilevel degenerative disc disease. Severe changes L5-S1 with arthropathy. IMPRESSION: 1. Scoliosis with severe degenerative disc disease L5-S1. Advanced facet arthropathy and suspected fo raminal encroachment.
== END | disposition home or self-care (01) ==
LOC: PNWHC3 14:03
PROVIDERS: ATTEND Specialist
DX: M51.36 Other intervertebral disc degeneration, lumbar region (principal); M47.812 Spondylosis without myelopathy or radiculopathy, cervical region; Z87.891 Personal history of nicotine dependence
CPT/HCPCS: 72100; G0463; 99211

== ENCOUNTER 2022-11-06 12:06 | Day surgery (SDC) | payer OTHER ==
[2022-11-06 12:35] VITALS: TEMP 98.2
[2022-11-06] MEDS ORDERED: IOPAMIDOL M200 10 ML VIAL ONE (12:51)
[2022-11-06] MEDS ORDERED: methylPREDNISolone ACETATE 80 MG/ML 1 ML VIAL ONE (12:51)
--- NOTE | 2022-11-06 13:07 | P.PCN ---
Date of Procedure: 11/06/22 Description of Procedure: Procedure: 1. Right-sided L5-S1 Epidural steroid injection under fluoroscopic guidance # 08/05 , 2. Lumbar epidurogram PREOPERATIVE DIAGNOSIS: Lumbar degenerative disc disease, and Lumbar radiculopathy. POSTOPERATIVE DIAGNOSIS: Lumbar degenerative disc disease, and Lumbar radiculopathy. SURGEON: Kenny Olivas ANESTHESIA: Local with 1% lidocaine, and IV sedation: None EBL: None. Specimen removed: None Fluoroscopic image: saved to electronic medical records PROCEDURE INDICATION: The patient had history of Lumbar degenerative disc disease and Lumbar radiculopathy. Failed to conservative therapy. Presented for epidural steroid injection. PROCEDURE DESCRIPTION: The patient was seen and identified in the preoperative area. Risks, benefits, complications, and alternatives were discussed with the patient. The patient agreed to proceed with the procedure and signed the consent. IV was started, and vital signs were stable. Patient was taken to the procedure area, and time out was completed. The patient was placed in the prone position on procedure table and a pillow was placed under the abdomen to reduce lumbar lordosis. The lumbosacral area was prepped and draped in the usual sterile fashion. Critical pause was taken. Vital signs w ere closely monitored during the procedure. Using anterior-posterior fluoroscopy, the L5-S1 interlaminar space was identified, and skin and deeper tissues were localized with 1% lidocaine. Using anterior-posterior fluoroscopy, lateral fluoroscopy, and [id number] technique, a 20 gauge 3.5 Tuohy epidural needle entered the epidural space. After negative aspiration of CSF and blood with no paresthesias, 1 ml of [id number] contrast dye was injected and an excellent epidurogram was seen. Again after negative aspiration of CSF and blood with no paresthesias, 8 mL of block solution was injected into the epidural space. Block solution contained 80 mg of Depo-Medrol, and 7 mL of preservative-free normal saline. Needle was withdrawn intact, skin was cleansed, and bandages were applied. COMPLICATIONS: None. DISPOSITION / PLANS: The patient was placed in a supine position and transferred to the recovery area in a stable condition for observation. Patient was discharged from the recovery room after meeting discharge criteria. Home discharge instructions given to the patient by the staff. The patient was reexamined prior to discharge. The patient will schedule a follow up in the clinic in 4 weeks.
[2022-11-06 13:14] VITALS: RESP 20
[2022-11-06 13:21] VITALS: BP 133/90; PULSE 90
--- NOTE | 2022-11-06 13:23 | FL ---
EXAMINATION TYPE: FL guided pain mgmt statistic DATE OF EXAM: 11/06/2022 HISTORY: Fluoroscopy time 5 seconds of fluoroscopy provided. dap [id number] IMPRESSION: 1. Fluoroscopy time.
== END 2022-11-06 13:25 | disposition home or self-care (01) ==
LOC: ORPAIN 12:06
DX: M51.16 Intervertebral disc disorders with radiculopathy, lumbar region (principal); M47.26 Other spondylosis with radiculopathy, lumbar region; Z79.1 Long term (current) use of non-steroidal anti-inflammatories (NSAID); Z98.890 Other specified postprocedural states
CPT/HCPCS: 62323; J1040; Q9966

== ENCOUNTER → 2022-11-27 | Outpatient (CLI) | payer OTHER ==
[2022-11-27 13:43] VITALS: BP 136/73; PULSE 84; RESP 16; TEMP 98.1
--- NOTE | 2022-11-27 14:17 | P.PAINPG ---
PQRS Measure Charge Sheet Comment: A 51 yr old female with a history of severe and chronic LBP secondary to lumbar DDD and spondylosis with facet arthropathy without myelopathy presents today for evaluation s/p R paramedian JOSUE L5-S1 #1. Pt states she experienced 100 % pain relief x 2 wks s/p procedure. Pain level is provoked at 10 /10 in i ntensity w walking/ standing for periods of 30 min ro more, constant, localized in the lumbar spine, achy in character w shooting towards the R side. Pain is alleviated with medications, topicals, injections, heat, PT in 2019, chiropractic treatments every 3 weeks since September 24, home exercise regimen, repositioning and rest. Interventional pain procedures completed include R paramedian JOSUE L5-S1, R SI injection. Patient is currently on [place] Patient denies any side effects of the medication(s), denies excessive drowsiness or sleepiness, denies suicidal ideation and reports that the current pain medication is helping to control the pain and improve activities of daily living. Patient denies any motor or sensory deficits. Patient denies any fever or night sweats, denies any change in the bowel movements or urination. Physical Examination: -Constitutional: Cooperative. Not in acute distress . - Neurologic: Cranial nerve II to XII intact. No focal neurological deficits. - Psychatric: Alert & oriented x 3. Matching mood & appropriate affect. Judgment and insight intact. - Musculoskeletal: Cervical spine: Muscle bulk/ tone/ strength in the bilateral upper extremities normal Vertebral body tenderness to palpation over Spurling test positive Distraction test positive Facet loading test positive TTP Thoracic spine Muscle bulk / tone/ strength in the bilateral paraspinal muscles normal Vertebral body tender to palpation over Facet loading test positive TTP Lumbar spine: Motor bulk/ tone/ strength lower extremities , thigh and legs : 5/5 Deep tendon reflexes : Normal Knee Jerk. Normal Ankle Jerk . Vertebral body tenderness to palpation over L5 Lumbar Facet Loading Test positive Straight Leg Raise: positive at 30 degrees right side/ left side Gaenslen's Test positive Sacral spine : Severe tenderness over the Sacroiliac joint: right side / left side Range of motion: Flexion of the lumbar spine <60 degrees Range of motion: Extension of the lumbar spine <20 degrees Gaenslen's Test positive right side / left side Jaz test: positive right side / left side Thigh Thrust Test positive right side / left side Sacral Thrust Test positive right side / left side Assessment and plan: Chronic LBP secondary to lumbar DDD, spondylosis with facet arthropathy without myelopathy Recommendation of R paramedian JOSUE L5-S1 #2. May need a series of injections for optimal pain relief. Risks, benefits of procedure discussed and pt verbalized understanding. Admits to anticoagulant use or medical history of diabetes. Protocol for discontinuation/ continuation of medications sarah procedu re discussed. All questions answered. I have spent less than 30 minutes on patient care today. Dr Borden was available by phone for the evaluation of this patient. The time was used to review the medical records including relevant urine studies and Prescription history (MAPs), review of the available imaging, evaluation and examination of the patient, coordination of care with the medical staff and if applicable referring physicians, as well as creation of the medical record PQRS Narrative: Smoking Status Former smoker Hx Alcohol Use (MH) Yes: Social Home Medications: Ambulatory Orders Celecoxib [CeleBREX] 200 mg PO BID 01/10/19 Biotin 1 tab PO DAILY 11/05/22 D3 1 tab PO DAILY 11/05/22 Controlled Substance Measures - Controlled Substance Measures Is patient prescribed a controlled substance at discharge?: No
== END ==
LOC: PNWHC3 12:49
PROVIDERS: ATTEND Specialist
DX: M51.36 Other intervertebral disc degeneration, lumbar region (principal); M47.816 Spondylosis without myelopathy or radiculopathy, lumbar region; G89.29 Other chronic pain; Z87.891 Personal history of nicotine dependence
CPT/HCPCS: 99211

== ENCOUNTER 2022-12-25 08:00 | Day surgery (SDC) | payer OTHER ==
[~2022-12-25 08:00] MED LIST changes: +LIDOCAINE 1% (10MG/ML) FOR IV START INTRADERMA PRN
[2022-12-25 08:17] VITALS: RESP 16; TEMP 97.4
[2022-12-25] MEDS ORDERED: ROPIVACAINE 5 MG/ML 20 ML AMPULE ONE (08:30)
[2022-12-25] MEDS ORDERED: methylPREDNISolone ACETATE 80 MG/ML 1 ML VIAL ONE (08:30)
--- NOTE | 2022-12-25 08:38 | P.PCN ---
Date of Procedure: 12/25/22 Procedure(s) Performed: PREOPERATIVE DIAGNOSIS: 1- Lumbar Degenerative Disc Diseases 2-Lumbar spondylosis with Facet arthropathy without myelopathy. 3-lumbar radiculopathy. POSTOPERATIVE DIAGNOSIS: 1-lumbar degenerative disc disease. 2-lumbar spondylosis with facet arthropathy without myelopathy. 3-lumbar radiculopathy.. PROCEDURE 1. Lumbar epidural steroid injection under fluoroscopic guidance at the L5-S1 level. (Fluoroscopy imaging was available in radiology department) 2. Lumbar epidurogram. ANESTHESIA: local anesthesia with lidocaine 1% 3 ML only EBL: Minimal PROCEDURE INDICATION: The patient with low back pain and radiculitis symptoms unresponsive to conservative treatment. Fluoroscopy was used to optimize visualization of the needle placement and to maximize safety. PROCEDURE DESCRIPTION / TECHNIQUE: The patient was seen and identified in the preoperative area. Risks, benefits, complications including but not limited to infections ,bleeding ,allergic reaction to the medications ,nerve damage and not complete pain releife , and a lternatives were discussed with the patient. The patient agreed to proceed with the procedure and signed the consent. IV was started, and vital signs were stable. Patient was taken to the OR and time out was completed. The patient was placed in the prone position on procedure table and a pillow was placed under the abdomen to reduce lumbar lordosis. The lumbosacral area was prepped and draped in the usual sterile fashion.ere closely monitored during the procedure. Vital signs was monitered during the entire procedure. Using anterior-posterior fluoroscopy, the L5-S1 ( right paramedia l ) interlaminar space was identified and the skin over this site was marked and then infiltrated with 1% lidocaine subcutaneously. Subsequently, a 20-gauge Tuohy epidural needle was inserted and advanced toward the epidural space using the ``Loss of resistance technique and guided by AP and lateral fluoroscopy. The correct needle position in the epidural space was verified with the injection of 2 mL of the water soluble contrast dye Isovue 200 contrast and observing an excellent epidurogram with the epidural spread of the dye, after negative aspiration for blood and CSF and in the absence of paresthesias. Again after negative aspiration, a 6 ml mixture containing 80 mg of Depo-medrol ( Preservetive Free ), and 2 ml of preservative free Normal Saline, and 2 ml of preservative free lidocaine 1% solution was injected and a washout of epidurogram was seen. Needle was withdrawn intact, skin was cleansed, and bandages were applied. COMPLICATIONS: None DISPOSITION / PLANS: The patient was placed in a supine position and transferred to the recovery area in a stable condition for observation. There was no evidence of lower extremity motor or sensory deficit after the procedure. Patient was discharged from the recovery room after meeting discharge criteria. Home discharge instructions were given to the patient by the staff. The patient was reexamined prior to discharge. The patient will schedule a follow up in the clinic in 2-4 weeks.
[2022-12-25 08:43] VITALS: PULSE 69
[2022-12-25 08:58] VITALS: BP 137/84
--- NOTE | 2022-12-25 12:27 | FL ---
EXAMINATION TYPE: FL guided pain mgmt statistic DATE OF EXAM: 12/25/2022 CLINICAL HISTORY: Low back pain. TECHNIQUE: Fluoroscopy. COMPARISON: None. FINDINGS: Fluoroscopic guidance was provided during pain relief procedure performed by Dr. Borden . A total of 1.1 seconds of fluoroscopic time was utilized during the procedure and one spot images are acquired. Single image acquired shows needle localization with contrast injection at L5 level. IMPRESSION: As Above. TOTAL DAP = 0.10508 mGy x m2
== END 2022-12-25 09:04 | disposition home or self-care (01) ==
LOC: ORPAIN 08:00
PROVIDERS: ATTEND Specialist
DX: M51.16 Intervertebral disc disorders with radiculopathy, lumbar region (principal); M47.26 Other spondylosis with radiculopathy, lumbar region
CPT/HCPCS: 62323; J1040; J2795

== ENCOUNTER → 2023-01-14 | Outpatient (CLI) | payer OTHER ==
[2023-01-14 13:54] VITALS: BP 131/80; PULSE 64; RESP 18; TEMP 98
--- NOTE | 2023-01-14 15:49 | P.PAINPG ---
PQRS Measure Charge Sheet Comment: A 52 yr old female with a history of severe and chronic LBP secondary to lumbar DDD and spondylosis with facet arthropathy without myelopathy presents today for evaluation s/p JOSUE L5-S1. Pt states she experienced 50% pain relief x 1 wk s/p procedure. Pt also admits she underwent a R RFA of the L4-L5, L5-S1 in May 2020 where she experienced at least 80% pain relief x 10 mo s/p procedure. Pain level is provoked at 9/10 in intensity, constant, localized in the R lower lumbar spine, sharp in character w shooting towards . Pain is provoked by . Pain is alleviated with PT years ago, chiropractic treatments Q3wks and limited by insurance, heat, medications, repositioning and rest. Interventional pain procedures completed include JOSUE L5-S1, R SI x3, R TFESI L5- S1 Patient is currently on Cortisone shots Patient denies any side effects of the medication(s), denies excessive drowsiness or sleepiness, denies suicidal ideation and reports that the current pain medication is helping to control the pain and improve activities of daily living. Patient denies any motor or sensory deficits. Patient denies any fever or night sweats, denies any change in the bowel movements or urination. Physical Examination: -Constitutional: Cooperative. Not in acute distress . - Neurologic: Cranial nerve II to XII intact. No focal neurological deficits. - Psychatric: Alert & oriented x 3. Matching mood & appropriate affect. Judgment and insight intact. - Musculoskeletal: Cervical spine: Muscle bulk/ tone/ strength in the bilateral upper extremities normal Vertebral body tenderness to palpation over Spurling test positive Distraction test positive Facet loading test positive TTP Thoracic spine Muscle bulk / tone/ strength in the bilateral paraspinal muscles normal Vertebral body tender to palpation over Facet loading test positive TTP Lumbar spine: Motor bulk/ tone/ strength lower extremities , thigh and legs : 5/5 Deep tendon reflexes : Normal Knee Jerk. Normal Ankle Jerk . Vertebral body tenderness to palpation over Maldonado Test positive Lumbar Facet Loading Test positive over R L4-L5, L5-S1 Straight Leg Raise: positive at 30 degrees right side/ left side Gaenslen's Test positive Sacral spine : Severe tenderness over the Sacroiliac joint: right side / left side Range of motion: Flexion of the lumbar spine <60 degrees Range of motion: Extension of the lumbar spine <20 degrees Gaenslen's Test positive right side / left side Jaz test: positive right side / left side Thigh Thrust Test positive right side / left side Sacral Thrust Test positive right side / left side Assessment and plan: Chronic LBP secondary to lumbar DDD, spondylosis with facet arthropathy without myelopathy Recommendation of R RFA L4-L5, L5-S1. Pt exhibited sufficient and substantial pain relief w prior RFA in May 2020. Risks, benefits of procedure discussed and pt verbalized understanding. Admits to anticoagulant use or medical history of diabetes. Protocol for discontinuation/ continuation of medications sarah procedure discussed. Minimal anesthesia provided, if clinically indicated, consisting of Versed and Fentanyl. All questions answered. I have spent less than 30 minutes on patient care today. Dr Borden was available by phone for the evaluation of this patient. The time was used to review the medical records including relevant urine studies and Prescription history (MAPs), review of the available imaging, evaluation and examination of the patient, coordination of care with the medical staff and if applicable referring physicians, as well as creation of the medical record PQRS Narrative: Smoking Status Former smoker Hx Alcohol Use (MH) Yes: Social Home Medications: Ambulatory Orders Celecoxib [CeleBREX] 200 mg PO BID 01/10/19 Biotin 1 tab PO DAILY 11/05/22 D3 1 tab PO DAILY 11/05/22 Controlled Substance Measures - Controlled Substance Measures Is patient prescribed a controlled substance at discharge?: No
== END ==
LOC: PNWHC3 12:15
PROVIDERS: ATTEND Specialist
DX: M51.37 Other intervertebral disc degeneration, lumbosacral region (principal); M47.817 Spondylosis without myelopathy or radiculopathy, lumbosacral region; G89.29 Other chronic pain; Z87.891 Personal history of nicotine dependence
CPT/HCPCS: 99211

== ENCOUNTER 2023-02-13 10:57 | Day surgery (SDC) | payer OTHER ==
[2023-02-12 08:56] VITALS: BMI 26.2
[2023-02-13 11:18] VITALS: TEMP 97.2
[2023-02-13] MEDS ORDERED: LACTATED RINGERS 1,000 ML IV ONE (11:19)
[2023-02-13] MEDS ORDERED: LACTATED RINGERS 1,000 ML IV SCH (11:20)
[2023-02-13] MEDS ORDERED: LIDOCAINE 1% (10MG/ML) FOR IV START INTRADERMA PRN (11:20)
[2023-02-13] MEDS ORDERED: methylPREDNISolone ACETATE 40 MG/ML 1 ML VIAL ONE (11:54)
[2023-02-13] MEDS ORDERED: ROPIVACAINE 5 MG/ML 20 ML AMPULE ONE (11:54)
[2023-02-13] MEDS ORDERED: MIDAZOLAM 2 MG/2 ML VIAL ONE (11:54)
[2023-02-13] MEDS ORDERED: fentaNYL (PF) 50 MCG/ML 2 ML AMP ONE (11:54)
--- NOTE | 2023-02-13 12:14 | P.PCN ---
Date of Procedure: 02/13/23 Procedure(s) Performed: PREOPERATIVE DIAGNOSIS: 1-Lumbar Spondylosis with Facet Arthropathy without myelopathy. 2- Lumber degenerative disc disease. POSTOPERATIVE DIAGNOSIS: 1- Lumbar Spondylosis with Facet Arthropathy without myelopathy. 2- Lumber degenerative disc disease. PROCEDURES : Right Radiofrequency thermocoagulation, L3 , L4 , and L5 medial branch, with fluoroscopic guidance (fluoroscopy images available in the radiology department) ( to denervate the facet joint at Right L4-5 ,and L5-S1 levels ). ANESTHESIA: Monitored anesthesia care as per anesthesia department . EBL: Minimal PROCEDURE INDICATION: The patient with low back pain secondary to lumbar facet arthropathy who had more than 50% relief of her pain with previous diagnostic lumbar medial branch block with bupivacaine. And patient had RFA done previously more than 2 years ago when she gets excellent pain relief, she is here today to have a repeat RFA of the medial branch lumbar area on the right side at L4-5 and L5-S1 PROCEDURE DESCRIPTION / TECHNIQUE: The patient was seen and identified in the preoperative area. Risks, benefits, complications, including but not limited to risk of infection ,bleeding , allergic reactions to the medications and no complete pain releife , and alternatives were discussed with the patient, the patient agreed to proceed with the procedure and signed the consent. IV was started. Vital signs remained stable throughout the procedure. Patient was taken to the OR and time out was completed. The patient was placed in the prone position on the procedure table. The lumber area was prepped and draped in the usual sterile fashion. . Vital signs were closely monitored during the procedure .IV sedation was used during the procedure to decrease patients anxiety. Using AP and then oblique fluoroscopy, the ``eye of the Edwin dog corres ponding to the connection between the superior and transverse articular processes of right L3, L4, and L5 were identified, marked, and localized with 1% lidocaine. Subsequently, a 18 parpu019-cc radiofrequency cannula with a 10- mm active tip was advanced guided by fluoroscopy to each of the``eyes of the Edwin dog at right L3, L4, and L5. Each site then underwent sensory testing at 50 Hz and 0 to 1 volt and motor testing at 2.5 Hz and 0 to 3 volt with local stimulation, but no radicular symptoms down the legs. Thereafter each sites underwent radiofrequency thermocoagulation at 80 degrees celsius for 90 seconds after injecting 0.5 ml of PF Ropivacaine 1ml, then after the thermocoagulation done , 1 ml of the block solution containing Depo-Medrol 20 mg and 3 ml of Ropivacaine 0.5% was injected at the right L3 , L4 , and L5 , levels after negative aspiration of CSF and blood and with no paresthesias. Cannulas were retracted while injecting lidocaine 1% until the needle is out. . At the end of the procedure, the skin was cleansed and bandages were applied. COMPLICATIONS: No acute complications. DISPOSITION / PLANS: The patient was placed in a supine position and transf erred to the recovery area in a stable condition for observation and was discharged from the recovery room after meeting discharge criteria. Home discharge instructions given to the patient by the staff. The patient was reexamined prior to discharge. The patient will schedule a follow up in the clinic in 2-4 weeks.
[2023-02-13] MEDS ORDERED: IV FLUID CONTINUATION 1,000 ML IV ONE (12:17)
--- NOTE | 2023-02-13 12:26 | FL ---
EXAMINATION TYPE: FL guided pain mgmt statistic DATE OF EXAM: 02/13/2023 HISTORY: Fluoroscopy time Total dose area product (DAP) in uGy*m?, mGy*cm? (or similar): 0.79615 IMPRESSION: 1. Fluoroscopy time.
[2023-02-13 12:33] VITALS: BP 112/76; PULSE 60; RESP 16
== END 2023-02-13 12:47 | disposition home or self-care (01) ==
LOC: ORPAIN 10:57
PROVIDERS: ATTEND Specialist
DX: M47.816 Spondylosis without myelopathy or radiculopathy, lumbar region (principal); M51.36 Other intervertebral disc degeneration, lumbar region; Z87.891 Personal history of nicotine dependence; Z79.899 Other long term (current) drug therapy
CPT/HCPCS: 64635; 64636; J2250; J1030; J3010; J2795

== ENCOUNTER → 2023-03-05 | Outpatient (CLI) | payer OTHER ==
[2023-03-05 12:31] VITALS: BP 122/79; PULSE 60; RESP 15; TEMP 97.9
--- NOTE | 2023-03-05 14:49 | P.PAINPG ---
PQRS Measure Charge Sheet Comment: HISTORY OF PRESENT ILLNESS: A 52 yr old female with a history of severe and chronic LBP secondary to lumbar DDD and spondylosis with facet arthropathy without myelopathy presents today for evaluation s/p BL RFA L3-L5. Pt states she experienced 50% pain relief s/p procedure. Pain level is provoked at 7/10 in intensity, constant, localized in the R lower lumbar spine, sharp in character w shooting towards . Pain is provoked by bending, standing. Pain is alleviated with PT years ago, physician guided stretching program since Sep 2022 as directed by her physician when she maxed out her chiropractic treatment sessions, chiropractic treatments Q3wks which were limited by insurance, heat, medications, repositioning and rest. Oswestry axial pain score of 20. Interventional pain procedures completed include JOSUE L5-S1, R SI x3, R TFESI L5- S1, BL RFA L3-L5 Patient is currently on Celebrex Patient denies any side effects of the medication(s), denies excessive drowsiness or sleepiness, denies suicidal ideation and reports that the current pain medication is helping to control the pain and improve activities of daily living. Patient denies any motor or sensory deficits. Patient denies any fever or night sweats, denies any change in the bowel movements or urination. Physical Examination: -Constitutional: Cooperative. Not in acute distress . - Neurologic: Cranial nerve II to XII intact. No focal neurological deficits. - Psychatric: Alert & oriented x 3. Matching mood & appropriate affect. Judgment and insight intact. - Musculoskeletal: Cervical spine: Muscle bulk/ tone/ strength in the bilateral upper extremities normal Vertebral body tenderness to palpation over Spurling test positive Distraction test positive Facet loading test positive TTP Thoracic spine Muscle bulk / tone/ strength in the bilateral paraspinal muscles normal Vertebral body tender to palpation over Facet loading test positive TTP Lumbar spine: Motor bulk/ tone/ strength lower extremities , thigh and legs : 5/5 Deep tendon reflexes : Normal Knee Jerk. Normal Ankle Jerk . Vertebral body tenderness to palpation over Maldonado Test positive Lumbar Facet Loading Test positive over R L4-L5, L5-S1 Straight Leg Raise: positive at 30 degrees right side/ left side Gaenslen's Test positive Sacral spine : Severe tenderness over the Sacroiliac joint: right side / left side Range of motion: Flexion of the lumbar spine <60 degrees Range of motion: Extension of the lumbar spine <20 degrees Gaenslen's Test positive right side / left side Jaz test: positive right side / left side Thigh Thrust Test positive right side / left side Sacral Thrust Test positive right side / left side Assessment and plan: Chronic LBP secondary to lumbar DDD, spondylosis with facet arthropathy without myelopathy Recommendation of R iliolumbar ligament injection. Risks, benefits of procedure discussed and pt verbalized understanding. Admits to anticoagulant use or medical history of diabetes. Protocol for discontinuation/ continuation of medications sarah procedure discussed. Minimal anesthesia provided, if clinically indicated, consisting of Versed and Fentanyl. All questions answered. I have spent less than 30 minutes on patient care today. Dr Borden was available by phone for the evaluation of this patient. The time was used to review the medical records including relevant urine studies and Prescription history (MAPs), review of the available imaging, evaluation and examination of the patient, coordination of care with the medical staff and if applicable referring physicians, as well as creation of the medical record PQRS Narrative: Smoking Status Former smoker Hx Alcohol Use (MH) Yes: Social Home Medications: Ambulatory Orders Celecoxib [CeleBREX] 200 mg PO BID 01/10/19 Biotin 1 tab PO DAILY 11/05/22 Cholecalciferol [Vitamin D3 (125 Mcg = 5000 Iu)] 125 mcg PO DAILY 02/12/23 Controlled Substance Measures - Controlled Substance Measures Is patient prescribed a controlled substance at discharge?: No
== END ==
LOC: PNWHC3 11:14
PROVIDERS: ATTEND Specialist
DX: M51.37 Other intervertebral disc degeneration, lumbosacral region (principal); G89.29 Other chronic pain; M47.817 Spondylosis without myelopathy or radiculopathy, lumbosacral region; Z87.891 Personal history of nicotine dependence; Z88.5 Allergy status to narcotic agent
CPT/HCPCS: 99211

== ENCOUNTER 2023-03-24 11:10 | Emergency (ER) | payer OTHER ==
[2023-03-24 11:17] VITALS: RESP 18; TEMP 98.2
[2023-03-24] MEDS ORDERED: KETOROLAC 15 MG/ML 1 ML VIAL IM STA (11:54)
[2023-03-24] MEDS ORDERED: MORPHINE SULFATE 4 MG/ML SYRINGE IM STA (11:55)
[2023-03-24] MEDS ORDERED: ONDANSETRON ODT 4 MG TAB PO PRN (11:55)
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
--- NOTE | 2023-03-24 12:18 | XR ---
EXAMINATION TYPE: XR ankle complete RT DATE OF EXAM: 03/24/2023 COMPARISON: NONE HISTORY: Pain TECHNIQUE: Frontal, lateral and oblique images of the right ankle are obtained. COMPARISON: None. FINDINGS: There is no acute fracture/dislocation evident. Ankle mortise prosthesis is noted be in pl rogelio. Soft tissue swelling about the ankle is noted. IMPRESSION: There is no acute fracture or dislocation seen.
[2023-03-24] MEDS ORDERED: ACET/COD 300 MG/30 MG STARTER PACK 6 TAB BTL PO STA (12:43)
[2023-03-24 13:28] VITALS: BP 165/80; PULSE 70
== END 2023-03-24 13:46 | disposition home or self-care (01) ==
LOC: EC 11:10
DX: M25.571 Pain in right ankle and joints of right foot (principal); M19.90 Unspecified osteoarthritis, unspecified site; Z79.899 Other long term (current) drug therapy; Z88.5 Allergy status to narcotic agent; Z87.891 Personal history of nicotine dependence
CPT/HCPCS: 99283; 96372 ×2; 73610; L4350; J2270; J1885

== ENCOUNTER → 2023-03-30 | Outpatient (CLI) | payer OTHER ==
--- NOTE | 2023-04-01 23:20 | MR ---
EXAMINATION TYPE: MR ankle RT wo con DATE OF EXAM: 03/30/2023 COMPARISON: Right ankle x-ray March 24, 2023 HISTORY: Right ankle pain, hx surgery. Standard multiplanar, multisequence MRI departmental protocol Multiplanar, multisequence images of the right ankle were acquired without contrast. FINDINGS: There is extensive susceptibility artifact from surgical change involving the distal tibia and the adjacent proximal tibial plafond making evaluation suboptimal. There is mild to moderate narr owing throughout the hindfoot and midfoot structures with mild spurring. No obvious suspicious focal edema is present. No significant soft tissue swelling or subcutaneous edema is present. The peroneal tendons are grossly intact. The flexor tendons: Posterior medial aspect of the ankle are grossly intact. Visualized Achilles tendon is within normal limits. Visualized plantar fascia is unr emarkable. IMPRESSION: Suboptimal study due to artifact from postsurgical change. Mild/moderate degenerative crista nges in the right ankle are seen as detailed above.
== END | disposition home or self-care (01) ==
LOC: RADMRIMAIN 12:47
PROVIDERS: ATTEND Podiatrist Foot & Ankle Surgery
DX: M19.071 Primary osteoarthritis, right ankle and foot (principal)

== ENCOUNTER → 2023-05-07 | Outpatient (CLI) | payer OTHER ==
--- NOTE | 2023-05-07 14:53 | P.PAINPG ---
PQRS Measure Charge Sheet Comment: HISTORY OF PRESENT ILLNESS: A 52 yr old female with a history of severe and chronic LBP secondary to lumbar DDD and spondylosis with facet arthropathy without myelopathy presents today for evaluation. Pain level is provoked at 10/10 in intensity, constant, localized in the R lower lumbar spine, sharp in character w shooting towards the R knee and ankle. Pain is provoked by bending, standing. Pain is alleviated with PT years ago, physician guided stretching program since Sep 2022 as directed by her physician when she maxed out her chiropractic treatment sessions, chiropractic treatments Q3wks in 2020 which were limited by insurance, heat, medications, repositioning and rest. Oswestry axial pain score of 28. Interventional pain procedures completed include JOSUE L5-S1, R SI x3, R TFESI L5- S1, BL RFA L3-L5 Patient is currently on Celebrex Patient denies any side effects of the medication(s), denies excessive drowsiness or sleepiness, denies suicidal ideation and reports that the current pain medication is helping to control the pain and improve activities of daily living. Patient denies any motor or sensory deficits. Patient denies any fever or night sweats, denies any change in the bowel movements or urination. Physical Examination: -Constitutional: Cooperative. Not in acute distress . - Neurologic: Cranial nerve II to XII intact. No focal neurological deficits. - Psychatric: Alert & oriented x 3. Matching mood & appropriate affect. Judgment and insight intact. - Musculoskeletal: Cervical spine: Muscle bulk/ tone/ strength in the bilateral upper extremities normal Vertebral body tenderness to palpation over Spurling test positive Distraction test positive Facet loading test positive TTP Thoracic spine Muscle bulk / tone/ strength in the bilateral paraspinal muscles normal Vertebral body tender to palpation over Facet loading test positive TTP Lumbar spine: Motor bulk/ tone/ strength lower extremities , thigh and legs : 5/5 Deep tendon reflexes : Normal Knee Jerk. Normal Ankle Jerk . Vertebral body tenderness to palpation over L5 Maldonado Test positive Lumbar Facet Loading Test positive Straight Leg Raise: positive at 30 degrees right side/ left side Gaenslen's Test positive Sacral spine : Severe tenderness over the Sacroiliac joint: right side / left side Range of motion: Flexion of the lumbar spine <60 degrees Range of motion: Extension of the lumbar spine <20 degrees Gaenslen's Test positive right side / left side Jaz test: positive right side / left side Thigh Thrust Test positive right side / left side Sacral Thrust Test positive right side / left side Assessment and plan: Chronic LBP secondary to lumbar DDD, spondylosis with facet arthropathy without myelopathy Recommendation of R TFESI L5-S1 #1. Risks, benefits of procedure discussed and pt verbalized understanding. Admits to anticoagulant use or medical history of diabetes. Protocol for discontinuation/ continuation of medications sarah procedure discussed. Minimal anesthesia provided, if clinically indicated, consisting of Versed and Fentanyl. All questions answered. I have spent less than 30 minutes on patient care today. Dr Borden was available by phone for the evaluation of this patient. The time was used to review the medical records including relevant urine studies and Prescription history (MAPs), review of the available imaging, evaluation and examination of the patient, coordination of care with the medical staff and if applicable referring physicians, as well as creation of the medical record PQRS Narrative: Smoking Status Former smoker Hx Alcohol Use (MH) Yes: Social Home Medications: Ambulatory Orders Celecoxib [CeleBREX] 200 mg PO BID 01/10/19 Biotin 1 tab PO DAILY 11/05/22 Cholecalciferol [Vitamin D3 (125 Mcg = 5000 Iu)] 125 mcg PO DAILY 02/12/23 HYDROcodone/APAP 5-325MG [[place] 5-325] 1 tab PO Q6HR PRN 03/27/23 Controlled Substance Measures - Controlled Substance Measures Is patient prescribed a controlled substance at discharge?: No
[2023-05-08 08:15] VITALS: BP 155/92; PULSE 73; RESP 116
== END ==
LOC: PNWHC3 10:36
PROVIDERS: ATTEND Specialist
DX: M51.36 Other intervertebral disc degeneration, lumbar region (principal); M47.816 Spondylosis without myelopathy or radiculopathy, lumbar region; G89.29 Other chronic pain; Z87.891 Personal history of nicotine dependence; Z88.8 Allergy status to other drugs, medicaments and biological substances
CPT/HCPCS: 99211

== ENCOUNTER 2023-06-04 11:43 | Day surgery (SDC) | payer OTHER ==
[2023-06-04] MEDS ORDERED: LACTATED RINGERS 1,000 ML IV SCH (12:14)
[2023-06-04 12:39] VITALS: RESP 16; TEMP 97.6
[2023-06-04] MEDS ORDERED: IOPAMIDOL M200 10 ML VIAL ONE (12:41)
[2023-06-04] MEDS ORDERED: methylPREDNISolone ACETATE 80 MG/ML 1 ML VIAL ONE (12:41)
--- NOTE | 2023-06-04 12:48 | P.PCN ---
Date of Procedure: 06/04/23 Procedure(s) Performed: PREOPERATIVE DIAGNOSIS: 1-Lumbar radiculopathy . 2-lumbar degenerative disc disease. 3-lumbar spondylosis with lumbar facet arthropathy without myelopathy POSTOPERATIVE DIAGNOSIS: 1-lumbar radiculopathy. 2-lumbar degenerative disc disease. 3-lumbar spondylosis with facet arthropathy without myelopathy PROCEDURE 1. Transforaminal epidural steroid injection under fluoroscopic guidance at right L5-S1 level. (Fluoroscopy images stored on file in the radiology Department ) 2. Lumbar epidurogram . ANESTHESIA: Local with 1% lidocaine 3 ml. EBL: Minimal PROCEDURE INDICATION: The patient with low back pain and radiculopathy symptoms unresponsive to conservative treatment. PROCEDURE DESCRIPTION / TECHNIQUE: The patient was seen and identified in the preoperative area. Risks, benefits, complications, and alternatives were discussed with the patient. The patient agreed to proceed with the procedure and signed the consent. IV was started, and vital signs were stable. Patient was taken to the OR and time out was completed. The patient was placed in the prone position on procedure table and a pillow was placed under the abdomen to reduce lumbar lordosis. The lumbosacral area was prepped and draped in the usual sterile fashion. Critical pause was taken. Vital signs were closely monitored during the procedure. Using oblique fluoroscopy, the chin of the ``Edwin dog at right L5-S1 level was identified, and the skin and deeper tissues just below was localized with 1% lidocaine. Subsequently, a 22-gauge 3.5-inch spinal needle was advanced under a tunneled view fluoroscopic guidance just underneath the chin of the `[place] dog at the right L5-S1 Under lateral fluoroscopy, the needle was then advanced to the posterior border of the interforaminal space. After negative aspiration of CSF and blood and with no paresthesias, 1 mL Isovue 200 contrast dye was injected excellent epidurogram and outlining of the nerve root Subsequently, 3 mL of block solution containing 80 mg Depo-Medrol and 2 mL of 0.9% normal saline PF was injected. Needle was removed . At the end of the procedure, skin was cleansed, and bandages were applied. COMPLICATIONS:none DISPOSITION / PLANS: The patient was placed in a supine position and transferred to the recovery area in a stable condition for observation. There was no evidence of lower extremity motor or sensory deficit after the procedure. Patient was discharged from the recovery room after meeting discharge criteria. Home discharge instructions were given to the patient by the staff. The patient was reexamined prior to discharge.
--- NOTE | 2023-06-04 13:02 | FL ---
Intraoperative/procedural fluoroscopic services were provided for lumbar transforaminal injection. To lon fluoroscopy time is 2.8 seconds with a total of 1 submitted image to PACS. Total DAP [id number] mGym 2. Please see the operative note for further details.
[2023-06-04 13:26] VITALS: BP 130/79; PULSE 71
== END 2023-06-04 13:15 | disposition home or self-care (01) ==
LOC: ORPAIN 11:43
PROVIDERS: ATTEND Specialist
DX: M51.16 Intervertebral disc disorders with radiculopathy, lumbar region (principal); M47.26 Other spondylosis with radiculopathy, lumbar region; Z88.5 Allergy status to narcotic agent
CPT/HCPCS: 64483; J1040; Q9966

== ENCOUNTER → 2023-07-06 | Outpatient (CLI) | payer OTHER ==
[2023-07-06 12:48] VITALS: BP 152/102; PULSE 78; RESP 15; TEMP 98.2
--- NOTE | 2023-07-06 12:52 | P.PAINPG ---
PQRS Measure Charge Sheet Comment: HISTORY OF PRESENT ILLNESS: A 52 yr old female with a history of severe and chronic LBP secondary to lumbar DDD and spondylosis with facet arthropathy without myelopathy presents today for evaluation s/p R TFESI L5-S1 #1. Pt states she experienced 50% pain relief x 1 wk s/p procedure. Pain level is provoked at 5/ 10 in intensity, constant, localized in the R lower lumbar spine, predominantly axial, sharp in character w occasional shooting towards the R knee and ankle. Pain is provoked by bending, standing. Pain is alleviated with PT years ago, physician guided stretching program since Sep 2022 as directed by her physician when she maxed out her chiropractic treatment sessions, chiropractic treatments Q3wks in 2020 which were limited by insurance, heat, medications, repositioning and rest. Oswestry axial pain score of 22. Interventional pain procedures completed include JOSUE L5-S1, R SI x3, R TFESI L5- S1 x2, BL RFA L3-L5 Patient is currently on Celebrex Patient denies any side effects of the medication(s), denies excessive drowsiness or sleepiness, denies suicidal ideation and reports that the current pain medication is helping to control the pain and improve activities of daily living. Patient denies any motor or sensory deficits. Patient denies any fever or night sweats, denies any change in the bowel movements or urination. Physical Examination: -Constitutional: Cooperative. Not in acute distress . - Neurologic: Cranial nerve II to XII intact. No focal neurological deficits. - Psychatric: Alert & oriented x 3. Matching mood & appropriate affect. Judgment and insight intact. - Musculoskeletal: Cervical spine: Muscle bulk/ tone/ strength in the bilateral upper extremities normal Vertebral body tenderness to palpation over Spurling test positive Distraction test positive Facet loading test positive TTP Thoracic spine Muscle bulk / tone/ strength in the bilateral paraspinal muscles normal Vertebral body tender to palpation over Facet loading test positive TTP Lumbar spine: Motor bulk/ tone/ strength lower extremities , thigh and legs : 5/5 Deep tendon reflexes : Normal Knee Jerk. Normal Ankle Jerk . Vertebral body tenderness to palpation over L5 Maldonado Test positive Lumbar Facet Loading Test positive Straight Leg Raise: positive at 30 degrees right side/ left side Gaenslen's Test positive Sacral spine : Severe tenderness over the Sacroiliac joint: right side / left side Range of motion: Flexion of the lumbar spine <60 degrees Range of motion: Extension of the lumbar spine <20 degrees Gaenslen's Test positive right side / left side Jaz test: positive right side / left side Thigh Thrust Test positive right side / left side Sacral Thrust Test positive right side / left side Assessment and plan: Chronic LBP secondary to lumbar DDD, spondylosis with facet arthropathy without myelopathy Will manage residual pain and may RTC on an as needed basis. All questio ns answered. I have spent less than 30 minutes on patient care today. Dr Borden was available by phone for the evaluation of this patient. The time was used to review the medical records including relevant urine studies and Prescription history (MAPs), review of the available imaging, evaluation and examination of the patient, coordination of care with the medical staff and if applicable referring physicians, as well as creation of the medical record PQRS Narrative: Smoking Status Former smoker Hx Alcohol Use (MH) Yes: Social Home Medications: Ambulatory Orders Celecoxib [CeleBREX] 200 mg PO BID 01/10/19 Biotin 1 tab PO DAILY 11/05/22 Cholecalciferol [Vitamin D3 (125 Mcg = 5000 Iu)] 125 mcg PO DAILY 02/12/23 HYDROcodone/APAP 5-325MG [[place] 5-325] 1 tab PO Q6HR PRN 03/27/23 Controlled Substance Measures - Controlled Substance Measures Is patient prescribed a controlled substance at discharge?: No
== END ==
LOC: PNWHC3 12:00
PROVIDERS: ATTEND Specialist
DX: M51.36 Other intervertebral disc degeneration, lumbar region (principal); M47.816 Spondylosis without myelopathy or radiculopathy, lumbar region; G89.29 Other chronic pain; Z87.891 Personal history of nicotine dependence; Z88.5 Allergy status to narcotic agent
CPT/HCPCS: 99211

== ENCOUNTER → 2023-09-10 | Outpatient (CLI) | payer OTHER ==
[2023-09-10 12:02] VITALS: BP 156/101; PULSE 75; RESP 16
--- NOTE | 2023-09-10 14:35 | P.PAINPG ---
PQRS Measure Charge Sheet Comment: HISTORY OF PRESENT ILLNESS: A 52 yr old female with a history of severe and chronic LBP secondary to lumbar DDD and spondylosis with facet arthropathy without myelopathy presents today for evaluation. Pain level is provoked at 7 /10 in intensity, constant, localized in the R lower lumbar spine, predominantly axial, sharp in character w occasional shooting towards the R buttock. Pain is provoked by bending, standing. Pain is alleviated with PT years ago, physician guided stretching program since Sep 2022 as directed by her physician when she maxed out her chiropractic treatment sessions, chiropractic treatments Q3wks in 2020 which were limited by insurance, heat, medications, repositioning and rest. Oswestry axial pain score of 22. Interventional pain procedures completed include JOSUE L5-S1, R SI x3, R TFESI L5- S1 x2, BL RFA L3-L5 Patient is currently on Celebrex Patient denies any side effects of the medication(s), denies excessive drowsiness or sleepiness, denies suicidal ideation and reports that the current pain medication is helping to control the pain and improve activities of daily living. Patient denies any motor or sensory deficits. Patient denies any fever or night sweats, denies any change in the bowel movements or urination. Physical Examination: -Constitutional: Cooperative. Not in acute distress . - Neurologic: Cranial nerve II to XII intact. No focal neurological deficits. - Psychatric: Alert & oriented x 3. Matching mood & appropriate affect. Judgment and insight intact. - Musculoskeletal: Cervical spine: Muscle bulk/ tone/ strength in the bilateral upper extremities normal Vertebral body tenderness to palpation over Spurling test positive Distraction test positive Facet loading test positive TTP Thoracic spine Muscle bulk / tone/ strength in the bilateral paraspinal muscles normal Vertebral body tender to palpation over Facet loading test positive TTP Lumbar spine: Motor bulk/ tone/ strength lower extremities , thigh and legs : 5/5 Deep tendon reflexes : Normal Knee Jerk. Normal Ankle Jerk . Vertebral body tenderness to palpation over L5 Maldonado Test positive Lumbar Facet Loading Test positive Straight Leg Raise: positive at 30 degrees right side/ left side Gaenslen's Test positive Sacral spine : Severe tenderness over the Sacroiliac joint: right side / left side Range of motion: Flexion of the lumbar spine <60 degrees Range of motion: Extension of the lumbar spine <20 degrees Gaenslen's Test positive right side / left side Jaz test: positive right side / left side Thigh Thrust Test positive right side / left side Sacral Thrust Test positive right side / left side Assessment and plan: Chronic LBP secondary to lumbar DDD, spondylosis with facet arthropathy without myelopathy Recommendation of R paramedian JOSUE L5-S1 #2. May need a series of injections for optimal pain relief. Risks, benefits of procedure discussed and patient verbalized understanding. Protocol for discontinuation/continuation of medications surrounding procedure discussed. All questions answered. I have spent less than 30 minutes on patient care today. Dr Borden was available by phone for the evaluation of this patient. The time was used to review the medical records including relevant urine studies and Prescription history (MAPs), review of the available imaging, evaluation and examination of the patient, coordination of care with the medical staff and if applicable referring physicians, as well as creation of the medical record PQRS Narrative: Smoking Status Former smoker Hx Alcohol Use (MH) Yes: Social Home Medications: Ambulatory Orders Celecoxib [CeleBREX] 200 mg PO BID 01/10/19 Biotin 1 tab PO DAILY 11/05/22 Cholecalciferol [Vitamin D3 (125 Mcg = 5000 Iu)] 125 mcg PO DAILY 02/12/23 HYDROcodone/APAP 5-325MG [[place] 5-325] 1 tab PO Q6HR PRN 03/27/23 Controlled Substance Measures - Controlled Substance Measures Is patient prescribed a controlled substance at discharge?: No
== END ==
LOC: PNWHC3 10:52
PROVIDERS: ATTEND Specialist
DX: M51.36 Other intervertebral disc degeneration, lumbar region (principal); M47.816 Spondylosis without myelopathy or radiculopathy, lumbar region; G89.29 Other chronic pain; Z87.891 Personal history of nicotine dependence; Z88.5 Allergy status to narcotic agent
CPT/HCPCS: 99211

== ENCOUNTER → 2023-10-14 | Outpatient (CLI) | payer OTHER ==
--- NOTE | 2023-10-18 17:55 | MM ---
Reason for Exam: Screening (asymptomatic). Last mammogram was performed 1 year(s) and 1 month(s) ago. Patient History: Menarche at age 11. First Full-Term at age 15. Postmenopausal. Hormonal Contraceptives, starting at age 25 for 15 years. Maternal grandmother had breast cancer. Risk Values: Reta 5 year model risk: 0.8%. NCI Lifetime model risk: 6.1%. Prior Study Comparison: 09/23/2021 Bilateral Diagnostic Mammogram, [facility]. 03/07/2022 Right MG diagnostic mammo RT w CAD, [facility]. 09/08/2022 Bilateral MG screening mammo w CAD, [facility]. Tissue Density: The breasts are heterogeneously dense, which may obscure small masses. Findings: Analyzed By CAD. Central asymmetric density on the left CC view have become more defined. These may represent superimposition shadow but further evaluation is recommended. Otherwise, no significant change. Overall Assessment: Incomplete: need additional imaging evaluation, BI-RAD 0 Management: Special View Mammogram of the left breast. Diagnostic Breast Ultrasound of the left breast. Additional views to include spot 3-D CC, 3-D CC rolled, and 3-D lateral views. Targeted left breast ultrasound if any persisting abnormality. [facility] will attempt to contact patient to return for supplemental views and ultrasound if indicated. Electronically signed and approved by: Abhi Lugo M.D. Radiologist
== END | disposition home or self-care (01) ==
LOC: RADMAMWWP 14:12
PROVIDERS: ATTEND Family Medicine
DX: Z12.31 Encounter for screening mammogram for malignant neoplasm of breast (principal); Z80.3 Family history of malignant neoplasm of breast; Z78.0 Asymptomatic menopausal state
CPT/HCPCS: 77067

== ENCOUNTER → 2023-10-26 | Outpatient (CLI) | payer OTHER ==
--- NOTE | 2023-10-26 10:27 | MM ---
Reason for Exam: Additional evaluation requested from abnormal screening. Last screening mammogram was performed less than 1 month ago. Patient History: Menarche at age 11. First Full-Term at age 15. Postmenopausal. Hormonal Contraceptives, starting at age 25 for 15 years. Maternal grandmother had breast cancer. Risk Values: Reta 5 year model risk: 0.8%. NCI Lifetime model risk: 6.1%. Prior Study Comparison: 03/07/2022 Right MG diagnostic mammo RT w CAD, [facility]. 09/08/2022 Bilateral MG screening mammo w CAD, [facility]. 10/14/2023 Bilateral MG screening mammo w CAD, [facility]. Tissue Density: Left: The breasts are heterogeneously dense, which may obscure small masses. Findings: Analyzed By CAD. Under compression, the area of increased density disperses normally. No underlying distortion or persistent spiculated or lobulated mass is evident. Findings are likely summation density. No abnormality identified on the lateral medial view. Under compression, the area of increased density disperses normally. No underlying distortion or persistent spiculated or lobulated mass is evident. Findings are likely summation density. No abnormality identified on the lateral medial view. Ultrasound not required at this time. Overall Assessment: Probably benign, BI-RAD 3 Management: Diagnostic Mammogram of the left breast in 6 months. A negative mammogram report should not preclude additional follow up of suspicious palpable abnormalities. Patient should continue monthly self breast exam. A clinical breast exam by your physician is recommended on an annual basis and results should be correlated with mammographic findings. Electronically signed and approved by: Blu Petersen D.O. Radiologis
== END | disposition home or self-care (01) ==
LOC: RADMAMWWP 09:54
PROVIDERS: ATTEND Family Medicine
DX: R92.332 Mammographic heterogeneous density, left breast (principal); Z80.3 Family history of malignant neoplasm of breast; Z78.0 Asymptomatic menopausal state
CPT/HCPCS: 77065; G0279; 77061

== ENCOUNTER → 2023-12-21 | Outpatient (CLI) | payer OTHER ==
--- NOTE | 2023-12-21 16:44 | US ---
EXAMINATION TYPE: US venous doppler duplex LE RT DATE OF EXAM: 12/21/2023 4:28 PM COMPARISON: NONE CLINICAL INDICATION: Female, 53 years old with history of I80.201 PHLBTS AND THOMBOPHLB OF UNSP DEEP VESSELS; pain and swelling in ankle that has had over 8 surgeries, swelling comes and goes, no h/o dv t SIDE PERFORMED: Right TECHNIQUE: The lower extremity deep venous system is examined utilizing real time linear array sonog adolph with graded compression, doppler sonography and color-flow sonography. VESSELS IMAGED: Common Femoral Vein Deep Femoral Vein Greater Saphenous Vein * Femoral Vein Popliteal Vein Small Saphenous Vein * Proximal Calf Veins (* superficial vessels) Right Leg: Negative for DVT IMPRESSION: 1. Right lower extremity ultrasound negative for deep venous thrombosis.
== END | disposition home or self-care (01) ==
LOC: RADUSWWP 16:08
PROVIDERS: ATTEND Podiatrist Foot & Ankle Surgery
DX: I80.201 Phlebitis and thrombophlebitis of unspecified deep vessels of right lower extremity (principal); M25.571 Pain in right ankle and joints of right foot; M25.471 Effusion, right ankle

== ENCOUNTER → 2024-01-13 | Outpatient (CLI) | payer OTHER ==
[2024-01-13 10:30] VITALS: BP 131/94; PULSE 72; RESP 16; TEMP 97.1
--- NOTE | 2024-01-13 14:51 | P.PAINPG ---
PQRS Measure Charge Sheet Comment: HISTORY OF PRESENT ILLNESS: A 53 yr old female with a history of severe and chronic LBP secondary to lumbar DDD and spondylosis with facet arthropathy without myelopathy presents today for evaluation. Pain level is provoked at 8 /10 in intensity, constant, localized in the R lower lumbar spine, predominantly axial, sharp in character w occasional shooting towards the R buttock. Pain is provoked by bending, standing. Pain is alleviated with chiropractic treatments weekly x 1 mo which she is currently in, physician guided stretching program since Sep 2022, heat, medications, repositioning and rest. Oswestry axial pain score of 25. Interventional pain procedures completed include JOSUE L5-S1, R SI x3, R TFESI L5- S1 x2, BL RFA L3-L5 Patient is currently on [place], Celebrex Patient denies any side effects of the medication(s), denies excessive drowsiness or sleepiness, denies suicidal ideation and reports that the current pain medication is helping to control the pain and improve activities of daily living. Patient denies any motor or sensory deficits. Patient denies any fever or night sweats, denies any change in the bowel movements or urination. Physical Examination: -Constitutional: Cooperative. Not in acute distress . - Neurologic: Cranial nerve II to XII intact. No focal neurological defic its. - Psychatric: Alert & oriented x 3. Matching mood & appropriate affect. Judgment and insight intact. - Musculoskeletal: Cervical spine: Muscle bulk/ tone/ strength in the bilateral upper extremities normal Vertebral body tenderness to palpation over Spurling test positive Distraction test positive Facet loading test positive TTP Thoracic spine Muscle bulk / tone/ strength in the bilateral paraspinal muscles normal Vertebral body tender to palpation over Facet loading test positive TTP Lumbar spine: Motor bulk/ tone/ strength lower extremities , thigh and legs : 5/5 Deep tendon reflexes : Normal Knee Jerk. Normal Ankle Jerk . Vertebral body tenderness to palpation over L5 Maldonado Test positive Lumbar Facet Loading Test positive Straight Leg Raise: positive at 30 degrees right side/ left side Gaenslen's Test positive Sacral spine : Severe tenderness over the Sacroiliac joint: right side / left side Range of motion: Flexion of the lumbar spine <60 degrees Range of motion: Extension of the lumbar spine <20 degrees Gaenslen's Test positive right side / left side Jaz test: positive right side / left side Thigh Thrust Test positive right side / left side Sacral Thrust Test positive right side / left side Assessment and plan: Chronic LBP secondary to lumbar DDD, spondylosis with facet arthropathy without myelopathy Recommendation of R TFESI L5-S1 #2. May need a series of injections for optimal pain relief. Risks, benefits of procedure discussed and patient verbalized understanding. Protocol for discontinuation/continuation of medications surrounding procedure discussed. All questions answered. I have spent less than 30 minutes on patient care today. Dr Borden was available by phone for the evaluation of this patient. The time was used to r eview the medical records including relevant urine studies and Prescription history (MAPs), review of the available imaging, evaluation and examination of the patient, coordination of care with the medical staff and if applicable referring physicians, as well as creation of the medical record PQRS Narrative: Smoking Status Former smoker Hx Alcohol Use (MH) Yes: Social Home Medications: Ambulatory Orders Celecoxib [CeleBREX] 200 mg PO BID 01/10/19 Biotin 1 tab PO DAILY 11/05/22 Cholecalciferol [Vitamin D3 (125 Mcg = 5000 Iu)] 125 mcg PO DAILY 02/12/23 HYDROcodone/APAP 5-325MG [[place] 5-325] 1 tab PO Q6HR PRN 03/27/23 Controlled Substance Measures - Controlled Substance Measures Is patient prescribed a controlled substance at discharge?: No
== END ==
LOC: PNWHC3 10:14
PROVIDERS: ATTEND Specialist
DX: M41.86 Other forms of scoliosis, lumbar region (principal); M51.36 Other intervertebral disc degeneration, lumbar region; M47.816 Spondylosis without myelopathy or radiculopathy, lumbar region; Z87.891 Personal history of nicotine dependence; Z88.5 Allergy status to narcotic agent
CPT/HCPCS: 99211

== ENCOUNTER → 2024-03-24 | Outpatient (CLI) | payer OTHER | LOC: PNWHC3 13:00 | PROVIDERS: ATTEND Specialist | DX: M54.16 Radiculopathy, lumbar region | CPT/HCPCS: 99211 ==

== ENCOUNTER 2024-05-05 12:46 | Day surgery (SDC) | payer OTHER ==
[2024-05-03 13:41] VITALS: BMI 26.2
[~2024-05-05 12:46] MED LIST changes: -LIDOCAINE 1% (10MG/ML) FOR IV START INTRADERMA PRN
[2024-05-05 13:09] VITALS: RESP 16; TEMP 97.6
[2024-05-05] MEDS ORDERED: DEXAMETHASONE SOD PHOSPHATE 10 MG/ML 1 ML VIAL ONE (13:56)
[2024-05-05] MEDS ORDERED: IOPAMIDOL M200 10 ML VIAL ONE (13:56)
--- NOTE | 2024-05-05 14:05 | P.PCN ---
Date of Procedure: 05/05/24 Description of Procedure: PROCEDURE: 1) right sided L4-L5 Transforaminal epidural steroid injection under fl uoroscopic guidance, 2) Epidurogram SURGEON: Kenny Olivas MORTGAGE ADVISOR: None ANESTHESIA: Local , and IV sedation: None EBL: None. 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 Came here for repeat procedure. PROCEDURE DESCRIPTION: The patient was seen and identified in the preoperative area. Risks, benefits, complications, and alternatives were discussed with the patient. The patient agreed to proceed with the procedure and signed the consent. IV was started, and vital signs were stable. Patient was taken to the OR and time out was completed. The patient was placed in the prone position on procedure table and a pillow was placed under the abdomen to reduce lumbar lordosis. The lumbosacral area was prepped with ChloraPrep 1 and draped in the usual sterile fashion. Critical pause was taken. Vital signs were closely monitored during the procedure. Using 20 degree ipsilateral oblique fluoroscopy, the chin of the Edwin dog of L5 was identified, and the skin and deeper tissues just below was localized with 1% lidocaine. 22-guage 5-inch spinal needles were used for the procedure. The needle was guided by fluoroscopy just underneath the chin of the Edwin dog of L5 . Under AP fluoroscopy, the needle was advanced to the 6 o'clock position of the L5 pedicle. After negative aspiration of CSF and blood and with no paresthesias, 1 mL of Isovue-200 contrast dye was injected with good anterior epidural spread and outlining of the L5 nerve root. After negative aspiration 3 mL of block solution injected . Block solution contained 10 mg of dexamethasone, with 2 mL of normal saline preservative-free. Needle was removed intact, skin was cleansed, and bandage was applied. COMPLICATIONS: None. DISPOSITION : The patient was placed in a supine position and transferred to the recovery area in a stable condition for observation and was discharged from the recovery room after meeting discharge criteria. Home discharge instructions given to the patient by the staff. The patient was reexamined prior to discharge. The patient will schedule follow-up in the clinic in 4 weeks' duration
[2024-05-05 14:16] VITALS: BP 129/83; PULSE 3
--- NOTE | 2024-05-05 14:16 | FL ---
EXAMINATION TYPE: FL guided pain mgmt statistic DATE OF EXAM: 05/05/2024 2:09 PM COMPARISON: Pre Operative Images if available both CT/MRI or plain film CLINICAL INDICATION: Female, 53 years old with history of Transforaminal Inj; TECHNIQUE: FL guided pain mgmt statistic, multiple fluoroscopic images provided for procedure. Total fluoroscopy time: 15.6 seconds Total submitted images to PACS: 6 DAP: 0.13467 mGym2 Gycm2 uGym2 cGycm2 or equivalent. FINDINGS: Fluoroscopic images during injection for pain management demonstrate multilevel degeneration changes throughout the spine. No evidence for fracture. No acute process identified. IMPRESSION: 1. No evidence for intraoperative complication. 2. Please see the operative/procedural note for further details. [facility], , 05/05/2024 2:13 PM
== END 2024-05-05 14:28 | disposition home or self-care (01) ==
LOC: ORPAIN 12:46
DX: M54.16 Radiculopathy, lumbar region
CPT/HCPCS: 64483

== ENCOUNTER → 2024-05-26 | Outpatient (CLI) | payer OTHER ==
[2024-05-26 11:20] VITALS: BP 132/87; PULSE 70; RESP 16
--- NOTE | 2024-05-26 15:03 | P.PAINPG ---
Objective - Vital Signs Vital signs: Vital Signs Temp Pulse 70 05/26/24 11:16 Resp 16 05/26/24 11:16 BP 132/87 05/26/24 11:16 Pulse Ox 100 05/26/24 11:16 FiO2 Intake & Output 05/25/24 05/26/24 05/26/24 18:59 06:59 18:59 Weight 82.554 kg PQRS Measure Charge Sheet Mode of Arrival: Ambulatory Comment: HISTORY OF PRESENT ILLNESS: A 53 yr old female with a history of severe and chronic LBP secondary to radiculoapthy, spondylosis and facet arthropathy without myelopathy presents today for evaluation s/p R TFESI L5-S1 #3. Pt states she experienced 0% pain relief s/p procedure. Pt underwent a R RFA L4-L5/ L5-S1 in Jan 2023 where she experienced > 50% pain relief x 8 mo s/p procedure. Pain level is provoked at 8 /10 in intensity, constant, localized in the R lower lumbar spine, predominantly axial, sharp in character without shooting pain. Pain is provoked by walking > 15 min. Pain is alleviated with chiropractic treatments weekly x 4 mo which she is currently in, physician guided stretching program since Sep 2022, heat, medications, repositioning and rest. Interventional pain procedures completed include JOSUE L5-S1, R SI x3, R TFESI L5- S1 x3, R RFA L3-L5 (Jan 2023) Patient is currently on [place], Celebrex Patient denies any side effects of the medication(s), denies excessive drowsiness or sleepiness, denies suicidal ideation and reports that the current pain medication is helping to control the pain and improve activities of daily living. Patient denies any motor or sensory deficits. Patient denies any fever or night sweats, denies any change in the bowel movements or urination. Physical Examination: -Constitutional: Cooperative. Not in acute distress . - Neurologic: Cranial nerve II to XII intact. No focal neurological deficits. - Psychatric: Alert & oriented x 3. Matching mood & appropriate affect. Judgment and insight intact. - Musculoskeletal: Cervical spine: Muscle bulk/ tone/ strength in the bilateral upper extremities normal Vertebral body tenderness to palpation over Spurling test positive Distraction test positive Facet loading test positive TTP Thoracic spine Muscle bulk / tone/ strength in the bilateral paraspinal muscles normal Vertebral body tender to palpation over Facet loading test positive TTP Lumbar spine: Motor bulk/ tone/ strength lower extremities , thigh and legs : 5/5 Deep tendon reflexes : Normal Knee Jerk. Normal Ankle Jerk . Vertebral body tenderness to palpation over L5 Maldonado Test positive Lumbar Facet Loading Test positive R L4-L5/ L5-S1 Straight Leg Raise: positive at 30 degrees right side/ left side Gaenslen's Test positive Sacral spine : Severe tenderness over the Sacroiliac joint: right side / left side Range of motion: Flexion of the lumbar spine <60 degrees Range of motion: Extension of the lumbar spine <20 degrees Gaenslen's Test positive right side / left side Jaz test: positive right side / left side Thigh Thrust Test positive right side / left side Sacral Thrust Test positive right side / left side Imaging: MRI non contrast lumbar spine from 10/08/22 reviewed Assessment and plan: Chronic LBP secondary to radiculopathy, spondylosis with facet arthropathy without myelopathy Recommendation of R RFA L4-L5/ L5-S1. Risks, benefits of procedure discussed and patient verbalized understanding. Protocol for discontinuation/continuation of medications surrounding procedure discussed. Minimal anesthesia including Fentanyl and Versed if clinically indicated. All questions answered. I have spent less than 30 minutes on patient care today. Dr Borden was available by phone for the evaluation of this patient. The time was used to review the medical records including relevant urine studies and Prescription history (MAPs), review of the available imaging, evaluation and examination of the patient, coordination of care with the medical staff and if applicable referring physicians, as well as creation of the medical record - Pain Location Right Lower Back Non-Pharmacological Interventions: Chiropractic Treatment, Heat, Inactivity Pharmacological Interventions: Epidural, PRN Medication, Scheduled Medication, Topical Medication PQRS Narrative: Smoking Status Former smoker Blood Pressure 132/87 Pain Intensity [Right Lower 7 Back] Scale Used Numeric (1 - 10) Hx Alcohol Use (MH) Yes: Social Home Medications: Ambulatory Orders Celecoxib [CeleBREX] 200 mg PO BID 01/10/19 Biotin 1 tab PO DAILY 11/05/22 Cholecalciferol [Vitamin D3 (125 Mcg = 5000 Iu)] 125 mcg PO DAILY 02/12/23 HYDROcodone/APAP 5-325MG [Graham 5-325] 1 tab PO Q4HR PRN 3 Days #15 tab 02/25/24 Controlled Substance Measures - Controlled Substance Measures Is patient prescribed a controlled substance at discharge?: No
== END ==
LOC: PNWHC3 11:06
PROVIDERS: ATTEND Specialist
CPT/HCPCS: 99211

== ENCOUNTER → 2024-06-07 | Outpatient (CLI) | payer OTHER ==
--- NOTE | 2024-06-07 11:09 | MM ---
Reason for Exam: Follow-up at short interval from prior study. Last screening mammogram was performed 8 month(s) ago. Patient History: Menarche at age 11. First Full-Term at age 15. Postmenopausal. Hormonal Contraceptives, starting at age 25 for 15 years. Maternal grandmother had breast cancer. Risk Values: Reta 5 year model risk: 0.8%. NCI Lifetime model risk: 6.0%. Prior Study Comparison: 09/08/2022 Bilateral MG screening mammo w CAD, [facility]. 10/14/2023 Bilateral MG screening mammo w CAD, [facility]. 10/26/2023 Left MG 3D work up w/cad LT, [facility]. Tissue Density: Left: The breasts are extremely dense, which lowers the sensitivity of mammography. Findings: Analyzed By CAD. The pattern appears stable. No residual focal asymmetry is identified. No persistent abnormal density identified. No suspicious groups of microcalcifications, spiculated or lobular masses, architectural distortion or other secondary signs of malignancy are mammographically apparent. Overall Assessment: Benign, BI-RAD 2 Management: Screening Mammogram of both breasts in 6 months. A negative mammogram report should not preclude additional follow up of suspicious palpable abnormalities. Patient should continue monthly self breast exam. A clinical breast exam by your physician is recommended on an annual basis and results should be correlated with mammographic findings. Note on Reta scores and lifetime risk: 1. A Reta score greater than 3% is considered moderate risk. If this is the case, consider specialist referral to assess eligibility for a risk reducing agent. 2. If overall lifetime risk for the development of breast cancer is 20% or higher, the patient may qualify for future screening with alternating mammogram and breast MRI. [facility], , 06/07/2024 11:06 AM. Electronically signed and approved by: Blu Petersen D.O. Radiologis
== END | disposition home or self-care (01) ==
LOC: RADMAMWWP 10:44
PROVIDERS: ATTEND Family Medicine
DX: R92.8 Other abnormal and inconclusive findings on diagnostic imaging of breast (principal); Z78.0 Asymptomatic menopausal state; Z80.3 Family history of malignant neoplasm of breast; R92.342 Mammographic extreme density, left breast
CPT/HCPCS: 77065; G0279; 77061

== ENCOUNTER 2024-06-14 10:55 | Day surgery (SDC) | payer OTHER ==
[2024-06-14 11:29] VITALS: RESP 16; TEMP 97.7
[2024-06-14] MEDS: IV FLUID CONTINUATION 1,000 ML IV ONE ×2 (11:29→12:52)
[2024-06-14] MEDS: LACTATED RINGERS 1,000 ML IV SCH (11:35)
[2024-06-14] MEDS: LIDOCAINE 1% (10MG/ML) FOR IV START INTRADERMA STA (11:35)
[2024-06-14] MEDS ORDERED: MIDAZOLAM 2 MG/2 ML VIAL ONE (12:28)
[2024-06-14] MEDS ORDERED: fentaNYL (PF) 50 MCG/ML 2 ML AMP ONE (12:28)
[2024-06-14] MEDS ORDERED: methylPREDNISolone ACETATE 40 MG/ML 1 ML VIAL ONE (12:28)
[2024-06-14] MEDS ORDERED: ROPIVACAINE 5MG/ML 20ML VIAL ONE (12:28)
--- NOTE | 2024-06-14 12:46 | P.PCN ---
Date of Procedure: 06/14/24 Procedure(s) Performed: PREOPERATIVE DIAGNOSIS: 1-Lumbar Spondylosis with Facet Arthropathy without myelopathy. 2- Lumber degenerative disc disease. POSTOPERATIVE DIAGNOSIS: 1- Lumbar Spondylosis with Facet Arthropathy without myelopathy. 2- Lumber degenerative disc disease. PROCEDURES : Right Radiofrequency thermocoagulation, L3 , L4 , and L5 medial branch, with fluoroscopic guidance (fluoroscopy images available in the radiology department) ( to denervate the facet joint at Right L4-5 ,and L5-S1 levels ). ANESTHESIA: Sedation with Versed 2 mg, and fentanyl 150 mcg ( sedation started at 1228 finished at 1243 ). EBL: Minimal PROCEDURE INDICATION: The patient with low back pain secondary to lumbar facet arthropathy who had more than 50% relief of her pain with previous diagnostic lumbar medial branch block with bupivacaine. And patient had RFA done previously more than 2 years ago when she gets excellent pain relief, she is here today to have a repeat RFA of the medial branch lumbar area on the right side at L4-5 and L5-S1 PROCEDURE DESCRIPTION / TECHNIQUE: The patient was seen and identified in the preoperative area. Risks, benefits, complications, including but not limited to risk of infection ,bleeding , allergic reactions to the medications and no complete pain releife , and alternatives were discussed with the patient, the patient agreed to proceed with the procedure and signed the consent. IV was started. Vital signs remained stable throughout the procedure. Patient was taken to the OR and time out was completed. The patient was placed in the prone position on the procedure table. The lumber area was prepped and draped in the usual sterile fashion. . Vital signs were closely monitored during the procedure .IV sedation was used during the procedure to decrease patients anxiety. Using AP and then oblique fluoroscopy, the ``eye of the Edwin dog corresponding to the connection between the superior and transverse articular processes of right L3, L4, and L5 were identified, marked, and localized with 1% lidocaine. Subsequently, a [id number] ( VENOM ) radiofrequency cannula with a 10-mm active tip was advanced guided by fluoroscopy to each of the``eyes of the Edwin dog at right L3, L4, and L5. Each site then underwent sensory testing at 50 Hz and 0 to 1 volt and motor testing at 2.5 Hz and 0 to 3 volt with local stimulation, but no radicular symptoms down the legs. Thereafter each sites underwent radiofrequency thermocoagulation at 80 degrees celsius for 90 seconds after injecting 0.5 ml of PF Ropivacaine 1ml, then after the thermocoagulation done , 1 ml of the block solution containing Depo-Medrol 20 mg and 3 ml of Ropivacaine 0.5% was injected at the right L3 , L4 , and L5 , levels after negative aspiration of CSF and blood and with no paresthesias. Cannulas were retracted while injecting lidocaine 1% until the needle is out. . At the end of the procedure, the skin was cleansed and bandages were applied. COMPLICATIONS: No acute complications. DISPOSITION / PLANS: The patient was placed in a supine position and transferred to the recovery area in a stable condition for observation and was discharged from the recovery room after meeting discharge criteria. Home disc harge instructions given to the patient by the staff. The patient was reexamined prior to discharge. The patient will schedule a follow up in the clinic in 2-4 weeks.
[2024-06-14 13:07] VITALS: BP 141/79; PULSE 66
--- NOTE | 2024-06-14 13:24 | FL ---
EXAMINATION TYPE: FL guided pain mgmt statistic DATE OF EXAM: 06/14/2024 12:47 PM COMPARISON: Pre Operative Images if available both CT/MRI or plain film CLINICAL INDICATION: Female, 53 years old with history of M47.816; TECHNIQUE: FL guided pain mgmt statistic, multiple fluoroscopic images provided for procedure. Total fluoroscopy time: 7.9 seconds Total submitted images to PACS: 3 DAP: 0.84684 mGym2 Gycm2 uGym2 cGycm2 or equivalent. FINDINGS: Fluoroscopic images during injection for pain management demonstrate multilevel degeneration changes throughout the spine. No evidence for fracture. No acute process identified. IMPRESSION: 1. No evidence for intraoperative complication. 2. Please see the operative/procedural note for further details. [facility], , 06/14/2024 1:21 PM
== END 2024-06-14 13:24 | disposition home or self-care (01) ==
LOC: ORPAIN 10:55
PROVIDERS: ATTEND Specialist
DX: M47.816 Spondylosis without myelopathy or radiculopathy, lumbar region (principal); Z88.5 Allergy status to narcotic agent
CPT/HCPCS: 64635; 64636; J2250; J3010; J2795; J1010; 99152

== ENCOUNTER → 2024-07-04 | Outpatient (CLI) | payer OTHER ==
[2024-07-04 13:25] VITALS: BP 131/83; PULSE 67; RESP 16
--- NOTE | 2024-07-04 16:23 | P.PAINPG ---
PQRS Measure Charge Sheet Comment: HISTORY OF PRESENT ILLNESS: A 53 yr old female with a history of severe and chronic LBP secondary to radiculoapthy, spondylosis and facet arthropathy without myelopathy presents today for evaluation s/p R RFA L4-L5/ L5-S1. Pt states she experienced 90 % pain relief s/p procedure. Pain level is provoked at 6 /10 in intensity, intermittent, localized in the R thoracic spine, predominantly axial, stabbing in character without shooting pain. Pain is provoked by bending. Pain is alleviated with chiropractic treatments weekly > 6 mo which she is currently in, physician guided stretching program since Sep 2022, heat, medications, repositioning and rest. Interventional pain procedures completed include JOSUE L5-S1, R SI x3, R TFESI L5- S1 x3, R RFA L3-L5 (Jan 2023m Jun 2024) Patient is currently on [place], Celebrex Patient denies any side effects of the medication(s), denies excessive drowsiness or sleepiness, denies suicidal ideation and reports that the current pain medication is helping to control the pain and improve activities of daily living. Patient denies any motor or sensory deficits. Patient denies any fever or night sweats, denies any change in the bowel movements or urination. Physical Examination: -Constitutional: Cooperative. Not in acute distress . - Neurologic: Cranial nerve II to XII intact. No focal neurological deficits. - Psychatric: Alert & oriented x 3. Matching mood & appropriate affect. Judgment and insight intact. - Musculoskeletal: Cervical spine: Muscle bulk/ tone/ strength in the bilateral upper extremities normal Vertebral body tenderness to palpation over Spurling test positive Distraction test positive Facet loading test positive TTP Thoracic spine Muscle bulk / tone/ strength in the bilateral paraspinal muscles normal Vertebral body tender to palpation over Facet loading test positive TTP Taut bands w twitch response over R T6-T10 Lumbar spine: Motor bulk/ tone/ strength lower extremities , thigh and legs : 5/5 Deep tendon reflexes : Normal Knee Jerk. Normal Ankle Jerk . Vertebral body tenderness to palpation over L5 Maldonado Test positive Lumbar Facet Loading Test positive R L4-L5/ L5-S1 Straight Leg Raise: positive at 30 degrees right side/ left side Gaenslen's Test positive Sacral spine : Severe tenderness over the Sacroiliac joint: right side / left side Range of motion: Flexion of the lumbar spine <60 degrees Range of motion: Extension of the lumbar spine <20 degrees Gaenslen's Test positive right side / left side Jaz test: positive right side / left side Thigh Thrust Test positive right side / left side Sacral Thrust Test positive right side / left side Imaging: MRI non contrast lumbar spine from 10/08/22 reviewed Assessment and plan: Chronic LBP secondary to radiculopathy, spondylosis with facet arthropathy without myelopathy Recommendation of R TPIs T4-T12 #1. Risks, benefits of procedure discussed and pt verbalized understanding. All questions answered. I have spent less than 30 minutes on patient care today. Dr Borden was available by phone for the evaluation of this patient. The time was used to review the medical records including relevant urine studies and Prescription history (MAPs), review of the available imaging, evaluation and examination of the patient, coordination of care with the medical staff and if applicable referring physicians, as well as creation of the medical record PQRS Narrative: Smoking Status Former smoker Hx Alcohol Use (MH) Yes: Social Home Medications: Ambulatory Orders Celecoxib [CeleBREX] 200 mg PO BID 01/10/19 Cholecalciferol [Vitamin D3 (125 Mcg = 5000 Iu)] 125 mcg PO DAILY 02/12/23 HYDROcodone/APAP 5-325MG [[place] 5-325] 1 tab PO Q4HR PRN 3 Days #15 tab 02/25/24 Controlled Substance Measures - Controlled Substance Measures Is patient prescribed a controlled substance at discharge?: No
== END ==
LOC: PNWHC3 12:51
PROVIDERS: ATTEND Specialist
DX: M47.27 Other spondylosis with radiculopathy, lumbosacral region (principal); Z88.8 Allergy status to other drugs, medicaments and biological substances; Z79.891 Long term (current) use of opiate analgesic; Z87.891 Personal history of nicotine dependence
CPT/HCPCS: 99211

== ENCOUNTER → 2024-08-15 | Outpatient (CLI) | payer OTHER ==
--- NOTE | 2024-08-15 15:36 | MR ---
INDICATION: Patient age:Female; 53 years old; Reason for study: M51.06,M51.362,R20.2; [facility]. COMPARISONS: MR lumbar spine 10/08/2022, 08/17/2020, 07/13/2017, lumbar spine radiograph 09/04/2022. TECHNIQUE: Multi planar, multi sequence imaging was performed utilizing: T1-weighted, T2-weighted, a nd turbo inversion recovery imaging of the lumbar spine. The patient was not given contrast. FINDINGS: Alignment: The lumbar vertebral bodies have preserved heights. No spondylolisthesis. Moderate dextros coliosis of the lumbar spine with apex at L2-L3. No spondylolisthesis. Cord: The conus medullaris and the distal spinal cord appear unremarkable with regards to their signa l intensity and morphology. Bones/Discs: Disc degeneration changes throughout the spine. No STIR signal abnormality. Multilevel d isc desiccation is present. T12-L1: No evidence of significant spinal canal stenosis or neural foraminal stenosis. L1-L2: No evidence of significant spinal canal stenosis or neural foraminal stenosis. L2-L3: No evidence of significant spinal canal stenosis or neural foraminal stenosis. L3-L4: Minimal broad-based disc bulge without evidence of significant spinal canal stenosis. Left lat eral posterior annular fissure. Ligamentum flavum buckling. Facet joint arthropathy without significa nt neural foraminal stenosis bilaterally. L4-L5: Minimal broad-based disc bulge without evidence of significant spinal canal stenosis. Ligament um flavum buckling. Facet joint arthropathy with mild to moderate right neural foraminal stenosis. No left neural foraminal stenosis. L5-S1: Broad-based disc bulge without significant spinal canal stenosis. Ligamentum flavum buckling. Facet joint arthropathy with moderate to severe right neural foraminal stenosis . No left neural fora nano stenosis. Other findings: None. IMPRESSION: 1. No definitive evidence of disc herniation or significant spinal canal stenosis. 2. Overall similar mild multilevel disc degeneration with associated osteoarthritic changes as descr ibed above. 3. Similar dextroscoliosis of the lumbar spine. [facility], , 08/15/2024 3:33 PM
== END | disposition home or self-care (01) ==
LOC: RADMRIMAIN 14:26
PROVIDERS: ATTEND Family Medicine
DX: M51.06 Intervertebral disc disorders with myelopathy, lumbar region (principal); R20.2 Paresthesia of skin; M41.86 Other forms of scoliosis, lumbar region; M47.816 Spondylosis without myelopathy or radiculopathy, lumbar region; M41.9 Scoliosis, unspecified
CPT/HCPCS: 72148

== ENCOUNTER → 2024-11-14 | Outpatient (CLI) | payer OTHER ==
[2024-11-14 14:33] VITALS: BP 116/73; PULSE 62; RESP 17; TEMP 97.9
--- NOTE | 2024-11-14 15:26 | P.PAINPG ---
PQRS Measure Charge Sheet Comment: HISTORY OF PRESENT ILLNESS: A 53 yr old female with a history of severe and chronic LBP secondary to radiculoapthy, spondylosis and facet arthropathy without myelopathy presents today for evaluation. Pain level is provoked at 6 /10 in intensity, intermittent, localized in the R thoracic spine, predominantly axial, stabbing in character w occasional shooting pain to the R buttock. Pain is provoked by bending. Pain is alleviated with chiropractic treatments weekly since 2022 which she is currently in, physician guided stretching program since Sep 2022, heat, medications, repositioning and rest. Interventional pain procedures completed include JOSUE L5-S1, R SI x3, R TFESI L5- S1 x3, R RFA L3-L5 x2 (02/22, 06/26) Patient is currently on [place], Celebrex Patient denies any side effects of the medication(s), denies excessive drowsiness or sleepiness, denies suicidal ideation and reports that the current pain medication is helping to control the pain and improve activities of daily living. Patient denies any motor or sensory deficits. Patient denies any fever or night sweats, denies any change in the bowel movements or urination. Physical Examination: -Constitutional: Cooperative. Not in acute distress . - Neurologic: Cranial nerve II to XII intact. No focal neurological deficits. - Psychatric: Alert & oriented x 3. Matching mood & appropriate affect. Judgment and insight intact. - Musculoskeletal: Cervical spine: Muscle bulk/ tone/ strength in the bilateral upper extremities normal Vertebral body tenderness to palpation over Spurling test positive Distraction test positive Facet loading test positive TTP Thoracic spine Muscle bulk / tone/ strength in the bilateral paraspinal muscles normal Vertebral body tender to palpation over Facet loading test positive TTP Taut bands w twitch response over R T6-T10 Lumbar spine: Motor bulk/ tone/ strength lower extremities , thigh and legs : 5/5 Deep tendon reflexes : Normal Knee Jerk. Normal Ankle Jerk . Vertebral body tenderness to palpation over L5 Maldonado Test positive Lumbar Facet Loading Test positive R L4-L5/ L5-S1 Straight Leg Raise: positive at 30 degrees right side/ left side Gaenslen's Test positive Sacral spine : Severe tenderness over the Sacroiliac joint: right side / left side Range of motion: Flexion of the lumbar spine <60 degrees Range of motion: Extension of the lumbar spine <20 degrees Gaenslen's Test positive right side / left side Jaz test: positive right side / left side Thigh Thrust Test positive right side / left side Sacral Thrust Test positive right side / left side Imaging: MRI non contrast lumbar spine from 10/08/22 reviewed Assessment and plan: Chronic LBP secondary to radiculopathy, spondylosis with facet arthropathy without myelopathy Recommendation of R DELILAH #1. Risks, benefits of procedure discussed and pt verbalized understanding. All questions answered. I have spent less than 30 minutes on patient care today. Dr Borden was available by phone for the evaluation of this patient. The time was used to review the medical records including relevant urine studies and Prescription history (MAPs), review of the available imaging, evaluation and examination of the patient, coordination of care with the medical staff and if applicable referring physicians, as well as creation of the medical record PQRS Narrative: Smoking Status Former smoker Hx Alcohol Use (MH) Yes: Social Home Medications: Ambulatory Orders Celecoxib [CeleBREX] 200 mg PO BID 01/10/19 Cholecalciferol [Vitamin D3 (125 Mcg = 5000 Iu)] 125 mcg PO DAILY 02/12/23 HYDROcodone/APAP 5-325MG [[place] 5-325] 1 tab PO Q4HR PRN 3 Days #15 tab 02/25/24 Controlled Substance Measures - Controlled Substance Measures Is patient prescribed a controlled substance at discharge?: No
== END ==
LOC: PNWHC3 14:02
PROVIDERS: ATTEND Specialist
DX: M47.816 Spondylosis without myelopathy or radiculopathy, lumbar region (principal); G89.29 Other chronic pain; Z88.5 Allergy status to narcotic agent; Z87.891 Personal history of nicotine dependence
CPT/HCPCS: 99212

== ENCOUNTER → 2024-12-06 | Outpatient (CLI) | payer OTHER ==
--- NOTE | 2024-12-06 15:05 | MM ---
Reason for Exam: Screening (asymptomatic). Last mammogram was performed 1 year(s) and 2 month(s) ago. Patient History: Menarche at age 11. First Full-Term at age 15. Postmenopausal. Hormonal Contraceptives, starting at age 25 for 15 years. Maternal grandmother had breast cancer. Risk Values: Reta 5 year model risk: 0.8%. NCI Lifetime model risk: 6.0%. Prior Study Comparison: 10/14/2023 Bilateral MG screening mammo w CAD, [facility]. 10/26/2023 Left MG 3D work up w/cad LT, [facility]. 06/07/2024 Left MG 3D diag mammo w/cad LT, [facility]. Tissue Density: The breasts are heterogeneously dense, which may obscure small masses. Findings: Analyzed By CAD. Left breast: There is no suspicious group of microcalcifications or new suspicious mass. Benign-appearing calcifications left breast. Overall Assessment: Negative, BI-RAD 1 Management: Screening Mammogram of both breasts in [address] [facility] will attempt to contact patient to return for supplemental views and ultrasound if indicated. Patient should continue monthly self-breast exams. A clinical breast exam by your physician is recommended on an annual basis. This exam should not preclude additional follow-up of suspicious palpable abnormalities. Note on Reta scores and lifetime risk: 1. A Reta score greater than 3% is considered moderate risk. If this is the case, consider specialist referral to assess eligibility for a risk reducing agent. 2. If overall lifetime risk for the development of breast cancer is 20% or higher, the patient may qualify for future screening with alternating mammogram and breast MRI. [facility], , 12/06/2024 2:46 PM. Electronically signed and approved by: Reece James DO
== END | disposition home or self-care (01) ==
LOC: RADMAMWWP 14:13
PROVIDERS: ATTEND Family Medicine
DX: Z12.31 Encounter for screening mammogram for malignant neoplasm of breast (principal); R92.333 Mammographic heterogeneous density, bilateral breasts; Z78.0 Asymptomatic menopausal state; Z80.3 Family history of malignant neoplasm of breast; Z92.0 Personal history of contraception
CPT/HCPCS: 77063; 77067

== ENCOUNTER 2024-12-09 11:52 | Day surgery (SDC) | payer OTHER ==
[2024-12-08 09:45] VITALS: BMI 25.7
[2024-12-09 12:50] VITALS: TEMP 98.1
[2024-12-09] MEDS ORDERED: ROPIVACAINE 5 MG/ML 30 ML VIAL ONE (13:36)
[2024-12-09] MEDS ORDERED: methylPREDNISolone ACETATE 80 MG/ML 1 ML VIAL ONE (13:36)
[2024-12-09] MEDS ORDERED: IOPAMIDOL M200 10 ML VIAL ONE (13:36)
--- NOTE | 2024-12-09 13:44 | P.PCN ---
Date of Procedure: 12/09/24 Procedure(s) Performed: Procedure=Right sacroiliac joints steroid injection under fluoroscopy guidance (fluoroscopy image stored on file in the radiology Department ) Preoperative diagnosis= 1-right sacroiliitis 2-lumbar degenerative disc disease 3-lumbar spondylosis with facet arthropathy Postoperative diagnosis=Same as preop Diagnosis . Complication = none Condition= stable Anesthesia= local anesthesia with ropivacaine 0.5% 2 ml only Indication for the procedure= patient complaining of low back pain , examination was positive for severe tenderness over the right sacroiliac joints , and patient diagnosed with right sacroiliitis, for this reason she was good candidate for sacroiliac joint steroid injection. Description of the procedure= procedure risk and benefits discussed with the patient, including but not limited, risk of infection and bleeding, and ALLERGIC reaction to the medication and not complete pain relief and patient agreed with the preceding patient taken to the operating room, placed in prone position or standard monitors applied to the patient then after induction of anesthesia back prepped with chlorhexidine 3 times , Then under strict sterile technique, first I did the right sacroiliac joint the which was identified under fluoroscopy guidance been local infiltration of the skin and subcu interstitial with lidocaine 1% then 22-gauge Quincke Needle advanced slowly under fluoroscopy and placed in the right sacroiliac joint needle placement confirmed with AP and oblique and lateral view, then after that Isovue 200 one mL injected which confirmed the correct needle placement with the appropriate arthrogram of the sacroiliac joint, and after appropriate n eedle placement confirmed and after negative aspiration, or heme , then Ropivacaine 0.5% 2 mL, and 80 mg of Depo-Medrol mixed together and injected in the right sacroiliac joint after negative aspiration patient tolerated the procedure well without any complication.tion patient tolerated the procedure well that any complications and she will follow up in clinic 3 weeks
--- NOTE | 2024-12-09 13:52 | FL ---
EXAMINATION TYPE: FL guided pain mgmt statistic DATE OF EXAM: 12/09/2024 CLINICAL INDICATION: Female, 53 years old with history of SI Inj; [facility], pain TECHNIQUE: Fluoroscopy. COMPARISON: None. FINDINGS: Fluoroscopic guidance was provided during pain relief procedure performed by Dr. Borden . A total of 4.9 seconds of fluoroscopic time was utilized during the procedure and one image was ac quired. Image acquired shows needle localization at sacroiliac joint. Degeneration changes of the vis ualized joints. Total DAP: 0.68835 mGym2. IMPRESSION: As Above. [facility], , 12/09/2024 1:50 PM
[2024-12-09 13:56] VITALS: BP 110/76; PULSE 70; RESP 18
== END 2024-12-09 14:26 | disposition home or self-care (01) ==
LOC: ORPAIN 11:52
PROVIDERS: ATTEND Specialist
DX: M46.1 Sacroiliitis, not elsewhere classified (principal); M47.816 Spondylosis without myelopathy or radiculopathy, lumbar region; M51.369 Other intervertebral disc degeneration, lumbar region without mention of lumbar back pain or lower extremity pain; Z88.5 Allergy status to narcotic agent
CPT/HCPCS: J2795; Q9966; J1010; G0260; 27096